=== PATIENT | male | born 1960 | race Caucasian/White ===

== ENCOUNTER → 2016-08-23 19:13 | Outpatient (CLI) | payer MEDICAID ==
[2015-06-18 12:29] VITALS: BMI 29.3
[~2016-08-23 19:13] MED LIST: ADVAIR 250/501 DISK INH; BAYER CHEWABLE81 MG PO; BENICAR20 MG PO; BRILINTA90 MG PO; FLUTICASONE PRO16 GM NASAL; IPRAT-ALBUT 0.5-3 ML UPD; MOBIC7.5 MG PO; MUCINEX600 MG PO; PREDNISONE; PRILOSEC20 MG PO; SINGUL; SPIRIVA18 MCG INH; ULTRAM50 MG PO; VENTOLIN HFA18 GM INH; XANAX1 MG PO
== END | disposition home or self-care (01) ==
LOC: D.SLEEP 19:13
DX: G47.33 Obstructive sleep apnea (adult) (pediatric) (principal)

== ENCOUNTER → 2016-09-14 19:36 | Outpatient (CLI) | payer MEDICAID ==
[2015-06-18 12:29] VITALS: BMI 29.3
== END | disposition home or self-care (01) ==
LOC: D.SLEEP 19:36
DX: G47.33 Obstructive sleep apnea (adult) (pediatric) (principal)

== ENCOUNTER 2018-10-20 11:58 | Inpatient (IN) | payer MEDICARE ==
[~2018-10-20] VITALS: Ht 182.9 cm; Wt 96.9 kg
--- NOTE | ~2018-10-20 | HEMODYNAMI ---
PATIENT:BESSY KOTHARI MEDICAL RECORD: [id number] : 60 LOCATION:DTOI ADMISSION DATE: 10/20/18 Generatedon:10/20/201815:04 Patient name: BESSY KOTHARI Patient #: [id number] SSN: : 1960 Date of study: 10/20/2018 Page: Of Hemodynamic Procedure Report Patient Data Patient Demographics Procedure consent was obtained First Name: BESSY Gender: Male Last Name: TAYE : 1960 [facility] Initial: TRACIE Age: 58 year(s) Patient #: [id number] Race: Additional ID: [id number] Contact details [address]: [address] [place] [address] State: [place] City: [place] Zip code: [address] Past Medical History History of disease Date Diagnosis Comments CAD Allergies Allergen Reaction Date Comments Reported Other allergy 09/27/2014 advil NSAIDs 10/20/2018 Admission Admission Data Admission Date: 10/20/2018 Admission Time: 11:58 Height (in.): 72 BSA: 2.13 (m2) Height (cm.): 182.88 BMI: 27.21 (kg/m2) Weight (lbs.): 200.62 Weight (kg.): 91 Lab Results Lab Result Date: 10/20/2018 Lab Result Time: 0:00 Biochemistry Name Units Result Min Max BUN mg/dl 11 --(-*--)-- 7 18 Creatinine mg/dl 1 --(--*-)-- 0.6 1.3 CBC Name Units Result Min Max Hematocrit % 50.4 --(--*-)-- 42 54 Hemoglobin g/dl 18.3 --(----)*- 13.5 17.5 Procedure Procedure Types Cath Procedure Diagnostic Procedure [facility] w/Coronaries Sedation Charges Moderate Sedation up to 15 minutes Procedure Description Procedure Date Procedure Date: 10/20/2018 Procedure Start Time: 14:45 Procedure End Time: 14:59 Procedure Staff Name Function Quintin Bagley MD Performing Physician Katya Gonzalez RT Monitor Nat Hawthorne RN Nurse Hue Carmona RT Scrub Procedure Data Cath Procedure Fluoroscopy Diagnostic fluoroscopy Total fluoroscopy Time: 1.3 time: 1.3 min min Diagnostic fluoroscopy Total fluoroscopy dose: 410 dose: 410 mGy mGy Contrast Material Contrast Material Type Amount (ml) Isovue 300 61 Entry Location Entry Primary Successful Side Size Upsize Upsize Entry Closure Succes sful Closure Location (Fr) 1 (Fr) 2 (Fr) Remarks Device Remarks Femoral Right 5 Fr Exoseal artery Estimated blood loss: 5 ml Diagnostic catheters Device Type Used For End Catheter Placement MULTIPACK JL 4.0 5Fr Procedure catheter MULTIPACK 3DRC 5Fr Procedure catheter MULTIPACK Pigtail 5 Fr Procedure catheter Procedure Complications No complications Procedure Medications Medication Administration Route Dosage 0.9% NaCl I.V. 100 ml/hr Oxygen etCO2 Nasal cannula 2 l/min Lidocaine 2% added to field 20 Heparin Flush Bag added to field 2 bags (1000units/500ml NS) Versed I.V. 2 mg Fentanyl I.V. 50 mcg Versed I.V. 1 mg Fentanyl I.V. 25 mcg Heparin Drip I.V. drip 1000 units/hr (84555fuvzy/250 D5W) Hemodynamics Rest BSA: 2.13 (m2) HGB: 18.3 (g/dl) O2 Consumption: Estimated: 236.14 (ml/min) O2 Co nsumption indexed: Estimated:110.86 (ml/min/m) Heart Rate: 51 (bpm) Pressure Samples Time Site Value (mmHg) Purpose Heart Use Rate(bpm) 14:50 LV 130/10,17 Snapshot 52 14:50 LV 134/10,15 Snapshot 53 Gradients Valve Time Site Site Mean SEP/DFP Peak To Heart Use 1 2 (mmHg) (sec/min) Peak Rate (mmHg) (bpm) Aortic 14:50 LV AO 52 Snapshots Pre Cath Intra NCS Post Cath Vital Signs Time Heart Resp SPO2 etCO2 NIBP (mmHg) Rhythm Pain Sedation Rate (ipm) (%) (mmHg) Status Level (bpm) 14:34:47 54 14 98 30.7 155/86(128) SB 0 (11) 10(A) , No pain 14:39:11 53 16 97 33.7 139/81(105) SB 0 (11) 10(A) , No pain 14:43:27 56 16 98 38.2 132/81(98) SB 0 (11) 10(A) , No pain 14:47:43 52 13 98 36.7 144/72(114) SB 0 (11) 9(A) , No pain 14:52:02 54 13 98 37.4 128/82(106) SB 0 (11) 9(A) , No pain 14:56:14 53 13 98 29.2 142/84(115) SB 0 (11) 10(A) , No pain Medications Time Medication Route Dose Verified Delivered Reason No luis fernando Effectiveness by by 14:37:18 0.9% NaCl I.V. 100 Quintin Nat used for ml/hr St Sanya Hawthorne procedure MD THAYER 14:37:26 Oxygen etCO2 2 l/min Quintin Nat used for Nasal Kevyn Christoph procedure cannula MD THAYER 14:37:31 Lidocaine 2% added 20ml Quintin Ribeiro for local to vial [facility] anesthetic field MD CISNEROS 14:37:36 Heparin Flush added 2 bags Quintin Quintin used for Bag to [facility] procedure (1000units/500ml field MD CISNEROS NS) 14:40:13 Versed I.V. 2 mg Quintin Nat for sedation St Sanya Hawthorne MD, RN 14:40:23 Fentanyl I.V. 50 mcg Quintin Nat for sedation St Sanya Hawthorne MD, RN 14:44:38 Versed I.V. 1 mg Quintin Nat for sedation St Sanya Hawthorne MD, RN 14:44:43 Fentanyl I.V. 25 mcg Quintin Ballyla for sedation St Sanya Hawthorne MD, RN 15:01:07 Heparin Drip I.V. 1000 Quintin Ballyla for (70784jofax/250 drip units/hr Kevyn Christoph anticoagulation D5W) MD THAYERgeneral assembler Log Time Note 14:22:11 Nat Hawthorne RN sent for patient. Start room use. 14:22:12 Time tracking: Regular hours (M-F 7:00 - 5:00) 14:22:16 Plan of Care:Hemodynamics will remain stable., Cardiac rhythm will remain stable., Comfort level will be maintained., Respiratory function will remain adequate., Patient/ family verbilizes understanding of procedure., Procedure tolerated without complication., Recovers from procedure without complications.. 14:25:33 Signed procedure consent form obtained from patient. 14:25:38 Patient received from Pre/Post Procedure Room to CCL 1 Alert and oriented. Tansferred to table in Supine position. 14:25:39 Warm blankets applied, and carla hugger turned on for patient comfort. 14:25:40 Correct patient and procedure confirmed by team. 14:25:40 ECG and BP/O2 sat monitors applied to patient. 14:25:49 H&P Date Dictated: 10/17/2018 Within 30 days and on chart., H&P Addendum completed by physician on day of procedure. (MUST COMPLETE FOR ALL OUTPATIENTS). 14:25:59 Patient allergic to NSAIDs 14:33:38 Vital chart was started 14:33:40 Baseline sample Acquired. 14:33:43 Rhythm: sinus bradycardia 14:33:43 Full Disclosure recording started 14:33:44 Pre-procedure instructions explained to patient. 14:33:45 Pre-op teaching completed and patient verbalized understanding. 14:33:46 Family in patients room. 14:33:47 Patient NPO since Midnight. 14:33:52 Is patient on blood thinner?Yes 14:34:06 PT STATES ON PLAVIX, LAST DOES WEDNESDAY 14:34:08 Patient diabetic? No. 14:34:14 Previous problem with sedation/anesthesia? No ? 14:34:17 Snore? Yes 14:34:18 Sleep apnea? No 14:34:19 Deviated septum? No 14:34:20 Opens mouth fully? Yes 14:34:21 Sticks out tongue? Yes 14:34:23 Airway obstruction? Yes COPD 14:34:35 Dentures? No MISSING TEETH 14:34:38 Pre procedure: right dorsailis pedis pulse 1+ Palpable, but thready & weak; easily obliterated 14:34:41 Patient pain scale 0/10 ?. 14:34:43 IV patent on arrival in left hand with 0.9% NaCl at [facility]. 14:35:05 Lab results completed and on chart. 14:37:18 0.9% NaCl 100 ml/hr I.V. was administered by Nat Hawthorne RN; used for procedure; 14:37:26 Oxygen 2 l/min etCO2 Nasal cannula was administered by Nat Hawthorne RN; used for procedure; 14:37:31 Lidocaine 2% 20ml vial added to field was administered by Quintin Bagley MD; for local anesthetic; 14:37:36 Heparin Flush Bag (1000units/500ml NS) 2 bags added to field was administered by Quintin Bagley MD; used for procedure; 14:38: Lab Result : BUN 11 mg/dl 14:: Lab Result : Creatinine 1 mg/dl 14:38: Lab Result : Hemoglobin 18.3 g/dl 14:38: Lab Result : Hematocrit 50.4 % 14:38:30 Right groin area was prepped with chlora-prep and draped in sterile fashion 14:38:31 Alarms reviewed by R. N. 14:38:32 Sharps counted by scrub and verified by R.N. 14:38:35 Use device set Femoral Dx 14:38:35 ACIST Syringe (18457) opened to sterile field. 14:38:36 Bag Decanter (2002S) opened to sterile field. 14:38:37 ACIST Hand Control (93298) opened to sterile field. 14:38:37 ACIST Manifold (57133) opened to sterile field. 14:38:38 Tegaderm 4 x 4 (1626W) opened to sterile field. 14:38:39 Medline Cath Pack ([id number]) opened to sterile field. 14:38:40 DIAGNOSTIC WIRE .035 260cm J wire (953102) opened to sterile field. 14:38:41 DIAGNOSTIC Multipack 5Fr catheter set (WH4258) opened to sterile field. 14:38:42 SHEATH 5FR [place] (YCJ504) opened to sterile field. 14:39:36 --------ALL STOP TIME OUT------ 14:39:37 Final Timeout: patient, procedure, and site verified with staff and physician. All members of the team are in agreement. 14:39:38 Right groin site verified by team. 14:39:40 Maximum allowable Isovue 300 dose 300ml. Physician notified. (300ml for normal creatinines. For patients with creatinine of 1.7 or higher multiply weight(kg) x 5 divided by creatinine.) 14:39:43 Fire Safety Assessment: A--An alcohol-based skin anteseptic being used preoperatively., C--Open oxygen or nitrous oxide is being used., D--An ESU, laser, or fiber-optic light is being used. 14:39:46 Physical assessment completed. ASA score P 2 - A patient with mild systemic disease as per Quintin Bagley MD. 14:39:50 Sedation plan: IV Moderate Sedation Medication:Versed, Fentanyl 14:40:13 Versed 2 mg I.V. was administered by Nat Hawthorne RN; for sedation; 14:40:23 Fentanyl 50 mcg I.V. was administered by Nat Hawthorne RN; for sedation; 14:40:35 Patient Weight : 200.62 lbs 14:40:41 Patient Height : 72 inches 14:44:38 Versed 1 mg I.V. was administered by Nat Hawthorne RN; for sedation; 14:44:42 Procedure started. 14:44:43 Fentanyl 25 mcg I.V. was administered by Nat Hawthorne RN; for sedation; 14:44:58 Zero performed for pressure channel P1 14:45:09 Local anesthetic to right femoral artery with Lidocaine 2% by Quintin Bagley MD.INITIAL ACCESS ONLY 14:45:30 A 5 Fr sheath was inserted into the Right Femoral artery 14:45:59 A MULTIPACK JL 4.0 5Fr catheter was advanced over the wire and used for Procedure. 14:47:08 LCA angiography performed. 14:47:34 Catheter removed. 14:47:39 A MULTIPACK 3DRC 5Fr catheter was advanced over the wire and used for Procedure. 14:48:50 RCA angiography performed. 14:48:52 Catheter removed. 14:49:20 A MULTIPACK Pigtail 5 Fr catheter was advanced over the wire and used for Procedure. 14:50:32 LV gram done using CAMERON 14:50:46 Injector settings: Ml/sec: 10, Volume: 20, 14:50:47 LV hemodynamics recorded. 14:50:55 EF : 50 % 14:50:57 Catheter removed. 14:53:52 EXOSEAL 5Fr (EX500) opened to sterile field. 14:57:13 Sheath removed intact; hemostasis achieved with Exoseal to the Right Femoral artery. 14:57:15 Procedure ended.(Physican Out) 14:58:04 Fluoroscopy time 01.30 minutes. 14:58:08 Flurop Dose total: 410 14:58:08 Fluoroscopy dose: 410 mGy 14:58:11 Contrast amount:Isovue 300 61ml. 14:58:13 Sharps counted by scrub and verified by R.N. 14:58:17 Post-op/insertion site Right Femoral artery dressed using a 4 x 4 and Tegaderm. 14:58:21 Post-procedure physical assessment completed. ASA score P 3 - A patient with severe systemic disease as per Quintin Bagley MD. 14:58:25 Post procedure rhythm: sinus bradycardia 14:58:28 Estimated blood loss: 5 ml 14:58:29 Post procedure instruction explained to patient.Patient verbalizes understanding. 14:58:29 Patient needs reinforcement of post procedure teaching. 14:58:44 Procedure type changed to Cath procedure, Diagnostic procedure, LHC, LHC w/Coronaries, Sedation Charges, Moderate Sedation up to 15 minutes 14:58:58 Procedure and supply charges have been captured, reviewed, submitted and are correct. 14:59:00 Procedure Complication : No complications 14:59:02 Vital chart was stopped 14:59:03 See physician's report for complete and final results. 14:59:11 Report given to PCU. 14:59:14 Patient transfered to PCU with Bed. 14:59:16 Procedure ended. 14:59:16 Full Disclosure recording stopped 14:59:23 End room use (Document Last) 15:01:07 Heparin Drip (86839gkqca/250 D5W) 1000 units/hr I.V. drip was administered by Nat Hawthoren RN; for anticoagulation; Device Usage Item Name Manufacture Quantity Catalog Hospital Part Current Minimal L ot# / Number Charge Number Stock Stock Serial# Code ACIST Acist 1 10862 607987 433034 914829 20 Syringe Medical (67500) Systems Inc Bag Microtek 1 879870 63238 943020 5 Decanter Medical Inc. () ACIST Hand Acist 1 68048 627422 275048 401301 5 Control Medical (94712) Systems Inc ACIST Acist 1 85810 593215 693536 698196 5 Manifold Medical (61461) Systems Inc Tegaderm 4 3M 1 1626W 763355 735131 976830 5 x 4 (1626W) Medline Medline 1 [id number] 332938 58444 547187 5 Cath Pack ([id number]) DIAGNOSTIC St [place] 1 451120 688060 349843 218720 30 WIRE .035 260cm J wire (549974) DIAGNOSTIC Cardinal 1 QW9547 845730 87377 574167 30 Multipack Health 5Fr catheter set (RG8323) SHEATH 5FR Terumo 1 NCF382 630717 432507 858412 5 Springfield (AWR642) MULTIPACK Cardinal 1 103321 5 JL 4.0 5Fr Health catheter MULTIPACK Cardinal 1 406441 5 3DRC 5Fr Health catheter MULTIPACK Cardinal 1 526826 5 Pigtail 5 Health Fr catheter EXOSEAL 5Fr Cardinal 1 EX500 217407 403852 242790 10 (EX500) Health Signature Audit Gilbert Stage Time Signature Unsigned Intra-Procedure 10/20/2018 Katya Gonzalez 3:04:21 PM RT(R) Signatures Monitor : Katya Gonzalez Signature : RT Date : Time : [address] [place] [address]
[2018-10-20] MEDS ORDERED: METOPROLOL TART25 MG PO (12:15)
[2018-10-20] MEDS ORDERED: SINGULAIR10 MG PO (12:15)
[2018-10-20] MEDS ORDERED: MIRAPEX0.125 MG PO (12:16)
[2018-10-20] MEDS ORDERED: LIPITOR80 MG PO (12:16)
[2018-10-20] MEDS ORDERED: LISINOPRIL40 MG PO (12:16)
[2018-10-20 12:26] VITALS: BP 181/89; BMI 27.2
[2018-10-20 12:32] LABS: BASOPHILS 0.2 % (0-2); EOSINOPHILS 2.9 % (0-7); HEMATOCRIT 50.4 % (42.0-54.0); HEMOGLOBIN 18.3 g/dL (13.5-17.5); IMMATURE GRANULOCYTES 0.2 % (0-5); LYMPHOCYTES 32.5 % (15-50); MCH 32.1 pg (26.0-34.0); MCHC 36.3 g/dL (31.0-37.0); MCV 88.4 fL (80.0-100.0); NEUTROPHILS 56.2 % (40-80); WBC 9.3 10x3/uL (4.8-10.8)
[2018-10-20 12:37] LABS: PLATELET COUNT 175 10x3/uL (130-400)
[2018-10-20 12:39] LABS: CALC OSMOLALITY 279 mosm/kg (275-300); CALCIUM 8.5 mg/dL (8.5-10.1); CHLORIDE - SERUM 105 mmol/L (98-107); GLUCOSE 101 mg/dL (74-106); POTASSIUM - SERUM 3.7 mmol/L (3.5-5.1); SODIUM 141 mmol/L (136-145); UREA NITROGEN 11 mg/dL (7-18); eGFR NON AFRICAN AMERICAN 81 mL/min (90-120)
[2018-10-20] MEDS ORDERED: PLAVIX75 MG PO (15:27)
[2018-10-20 15:49] LABS: PLT FUNCT.(P2Y12) PLAVIX 158 PRU (194-418)
--- NOTE | 2018-10-20 15:49 | NUR ---
PT ARRIVED FROM CHILD WELFARE COUNSELOR, ALERT AND ORIENTED X3, SPOUSE IS AT BEDSIDE. WILL CONTINUE TO MONITOR AND FOLLOW PLAN OF CARE.
--- NOTE | 2018-10-20 15:52 | NUR ---
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 FAMILY IS AT BEDSIDE AT THIS TIME. WILL CONTINUE TO MONITOR AND FOLLOW PLAN OF CARE.
--- NOTE | 2018-10-20 15:59 | NUR ---
TRANSFER FROM POLICE CADET BY BED. RIGHT GROIN STABLE WITHOUT BLEEDING OR HEMATOMA NOTED. FAMILY AT BS. CALL LIGHT IN REACH. WILL CONT. PLAN OF CARE.
[2018-10-20 16:00] VITALS: BP 147/87; BP 167/90; BMI 27.2
[2018-10-20 16:28] LABS: BASOPHILS 0.2 % (0-2); EOSINOPHILS 2.8 % (0-7); HEMOGLOBIN 16.3 g/dL (13.5-17.5); IMMATURE GRANULOCYTES 0.2 % (0-5); LYMPHOCYTES 36.3 % (15-50); MCH 31.7 pg (26.0-34.0); MCHC 35.4 g/dL (31.0-37.0); MCV 89.5 fL (80.0-100.0); MEAN PLATELET VOLUME 11.3 fL (7.4-10.4); NEUTROPHILS 53.5 % (40-80); PLATELET COUNT 166 10x3/uL (130-400); RBC 5.14 10x6/uL (4.20-6.10)
[2018-10-20 16:43] LABS: INR 1.06 (0.85-1.17); PROTIME 13.3 SECONDS (11.6-15.0)
[2018-10-20 17:44] LABS: ALBUMIN 3.4 g/dL (3.4-5.0); ALKALINE PHOSPHATASE 89 U/L (46-116); ALT (SGPT) 33 U/L (10-68); BILIRUBIN - TOTAL 1.15 mg/dL (0.2-1.3); CALC OSMOLALITY 278 mosm/kg (275-300); CALCIUM 7.8 mg/dL (8.5-10.1); CARBON DIOXIDE 26.5 mmol/L (21.0-32.0); CHLORIDE - SERUM 107 mmol/L (98-107); CHOLESTEROL, TOTAL 97 mg/dL (0-200); CREATININE - SERUM 0.8 mg/dL (0.6-1.3); GLUCOSE 76 mg/dL (74-106); PHOSPHOROUS 2.6 mg/dL (2.5-4.9); POTASSIUM - SERUM 3.8 mmol/L (3.5-5.1); PROTEIN - SERUM 6.4 g/dL (6.4-8.2); SODIUM 141 mmol/L (136-145); T4 THYROXIN - FREE 1.15 ng/dL (0.76-1.46); THYROID STIMULATING HORMONE 0.79 uIU/mL (0.36-3.74); UREA NITROGEN 10 mg/dL (7-18); URIC ACID 3.7 mg/dL (2.6-7.2); eGFR NON AFRICAN AMERICAN > 90 mL/min (90-120)
--- NOTE | 2018-10-20 19:45 | NUR ---
RESUMING PATIENT CARE. PATIENT IS ALERT AND ORIENTED. RESTING COMFORTABLY IN BED. RESPIRATIONS ARE EVEN AND UNLABORED. NO S/S OF DISTRESS. NO C/O PAIN. CALL LIGHT WITHIN REACH. WILL CPOC.
[2018-10-20 20:00] VITALS: BP 156/97
[2018-10-21] VITALS (27 sets, daily range): BP systolic 91–146; BP diastolic 51–77
[2018-10-21 05:14] LABS: INR 1.05 (0.85-1.17); PROTIME 13.3 SECONDS (11.6-15.0)
[2018-10-21 05:16] LABS: BASOPHILS 0.5 % (0-2); EOSINOPHILS 3.2 % (0-7); HEMATOCRIT 46.6 % (42.0-54.0); HEMOGLOBIN 16.4 g/dL (13.5-17.5); IMMATURE GRANULOCYTES 0.1 % (0-5); LYMPHOCYTES 33.6 % (15-50); MCH 31.4 pg (26.0-34.0); MCHC 35.2 g/dL (31.0-37.0); MCV 89.3 fL (80.0-100.0); MEAN PLATELET VOLUME 11.6 fL (7.4-10.4); MONOCYTES 7.5 % (2-11); NEUTROPHILS 55.1 % (40-80); PLATELET COUNT 151 10x3/uL (130-400); RBC 5.22 10x6/uL (4.20-6.10); WBC 10.2 10x3/uL (4.8-10.8)
[2018-10-21 05:18] LABS: APTT 56.2 SECONDS (22.8-39.4)
[2018-10-21 05:28] LABS: ALBUMIN 3.4 g/dL (3.4-5.0); ALKALINE PHOSPHATASE 92 U/L (46-116); ALT (SGPT) 29 U/L (10-68); BILIRUBIN - TOTAL 1.43 mg/dL (0.2-1.3); CALC OSMOLALITY 279 mosm/kg (275-300); CALCIUM 7.8 mg/dL (8.5-10.1); CARBON DIOXIDE 25.5 mmol/L (21.0-32.0); CHLORIDE - SERUM 108 mmol/L (98-107); CREATININE - SERUM 0.9 mg/dL (0.6-1.3); GLUCOSE 98 mg/dL (74-106); POTASSIUM - SERUM 3.8 mmol/L (3.5-5.1); PROTEIN - SERUM 6.6 g/dL (6.4-8.2); SODIUM 141 mmol/L (136-145); UREA NITROGEN 10 mg/dL (7-18); eGFR NON AFRICAN AMERICAN > 90 mL/min (90-120)
--- NOTE | 2018-10-21 13:30 | NUR ---
PT RECEIVED TO ROOM VIA BED FROM O.R. PT SEDATED AND VENTILATED. PLACED ON BEDSIDE MONITORING. CURRENTLY INFUSING PLASMALYTE AT 100ML/HR. NO OTHER DRIPS. PT HAS RIGHT RADIAL ART LINE. RIGHT JUGULAR CENTRAL LINE. MIDSTERNAL INCISION COVERED, DRESSING C,D,I. SUBSTERNAL DRESSING OVER CHEST TUBE X2, LEFT WILLIE DRAIN (COMPRESSED), TPM SITES X2. TPM TURNED ON AND SET TO AAI 80. HANSON CATHETER. RIGHT LEG HARVESTS. DRESSING INTACT AND CLEAN. LEFT LEG WITH RIHCARD AND SCD. 8.0 ETT 24CM AT THE LIP. 100%. PALPABLE PULSES BILATERAL, PT ABLE TO MOVE ALL EXTREMITIES.
--- NOTE | 2018-10-21 15:01 | NUR ---
DR WOOD BY TO SEE PATIENT. TURNED OFF TPM. PT HR UPPER 50'S. SAYS IS OK FOR PATIENT TO STAY IN 50'S, THAT IS WHERE HE WAS PRE-OP.
--- NOTE | 2018-10-21 16:40 | NUR ---
ABG RESULTS RELAYED TO DR WOOD. OK TO EXTUBATE, BUT WANTS TPM TURNED BACK ON TO RATE OF 70 AND ANOTHER GAS IN 2 HOURS.
--- NOTE | 2018-10-21 16:46 | NUR ---
PT EXTUBATED. TOLERATED WELL. PLACED ON 4L NC.
--- NOTE | 2018-10-21 19:00 | NUR ---
REPORT RECIEVED, SHIFT ASSESSMENT COMPLETE, PLEASE SEE FLOW SHEETS FOR DETAILS. CHECKED CHEST TUBES, PATENT. TPM CHECKED, ON, PROTECTIVE COVER IN PLACE. HEMODYNAMICALLY STABLE, WILL CONTINUE PLAN OF CARE.
--- NOTE | 2018-10-21 20:00 | NUR ---
PULLED 400 OF I.S., ENCOURAGED COUGH, WEAK.
--- NOTE | 2018-10-21 21:00 | NUR ---
PULLED 500 ON I.S., WEAK COUGH OBSERVED. HEMODYNAMICALLY STABLE. BED LOW AND LOCKED, CALL LIGHT IN REACH. WILL CONTINUE PLAN OF CARE.
--- NOTE | 2018-10-21 21:45 | NUR ---
DANGLED AT SIDE OF BED. TOLERATED WELL. NO DUMPING FROM CHEST TUBES SEEN. LAYING BACK IN BED, POSITIONED FOR COMFORT. HEMODYNAMICALLY STABLE. CONTINUING PLAN OF CARE.
[2018-10-21 22:49] LABS: APPEARANCE CLEAR (CLEAR); BILIRUBIN NEGATIVE (NEGATIVE); COLOR YELLOW (YELLOW); GLUCOSE NEGATIVE (NEGATIVE); KETONE SMALL mg/dL (NEGATIVE); NITRITE NEGATIVE (NEGATIVE); PROTEIN TRACE mg/dL (NEGATIVE); UROBILINOGEN NORMAL (NORMAL)
[2018-10-21 22:51] LABS: BACTERIA MODERATE /hpf (NONE SEEN); EPITHELIAL CELLS 0-5 /hpf (0-5); RED CELLS - URINE 0-5 /hpf (0-5)
[2018-10-21 22:52] LABS: HYALINE CAST 0-5 /lpf (NONE SEEN); MUCUS <1+ /lpf (NONE SEEN)
--- NOTE | 2018-10-21 22:58 | NUR ---
REASSESSMENT COMPLETE, PLEASE SEE FLOW SHEETS FOR DETAILS. NO ACUTE CHANGES TO NOTE. PULLED 550 ON I.S., WEAK COUGH. HEMODYNAMICALLY STABLE. BED LOW AND LOCKED, CALL LIGHT IN REACH. WILL CONTINUE PLAN OF CARE.
[2018-10-22] VITALS (47 sets, daily range): BP systolic 88–124; BP diastolic 46–73
--- NOTE | 2018-10-22 01:00 | NUR ---
RESTING, HEMODYNAMICALLY STABLE. MONITORING ALL TUBES/LINES. BED LOW AND LOCKED, CALL LIGHT IN REACH. WILL CONTINUE PLAN OF CARE.
--- NOTE | 2018-10-22 03:35 | NUR ---
REASSESSMENT COMPLETE, PLEASE SEE FLOW SHEETS FOR DETAILS. TITRATING DWIGHT TO EFFECT. WILL CONTINUE PLAN OF CARE.
--- NOTE | 2018-10-22 03:35 | NUR ---
0245 GAVE FULL BED BATH, DANGLED TO SIDE OF BED. ONCE BACK TO BED AND POSITINED FOR COMFORT, BP DROPPED, DWIGHT WAS INITIATED AND TITRATED TO EFFECT. TOTAL TIME IN ROOM 40 MINUTES. HANSON CARE PROVIDED. RICHARD'S AND SCD'S ON. RIGHT LEG DRESSING REMOVED, SOME BRUISING SEEN AROUND INCISION SITES (2), WOUND EDGES WELL APPROXIMATED. FEET AND ARMS ELEVATED ON PILLOWS, HEELS BRIDGED. BED LOW AND LOCKED, CALL LIGHT IN REACH. WILL CONTINUE PLAN OF CARE.
--- NOTE | 2018-10-22 05:00 | NUR ---
TITRATING DWIGHT TO EFFECT. PULLED 500 ON I.S.. WILL CONTINUE PLAN OF CARE.
[2018-10-22 05:20] LABS: BASOPHILS 0.1 % (0-2); EOSINOPHILS 0 % (0-7); HEMATOCRIT 37.6 % (42.0-54.0); IMMATURE GRANULOCYTES 0.3 % (0-5); LYMPHOCYTES 7.4 % (15-50); MCH 31.1 pg (26.0-34.0); MCHC 34.3 g/dL (31.0-37.0); MCV 90.6 fL (80.0-100.0); MEAN PLATELET VOLUME 10.8 fL (7.4-10.4); MONOCYTES 10.7 % (2-11); NEUTROPHILS 81.5 % (40-80); RDW 13.4 % (11.5-14.5)
[2018-10-22 05:24] LABS: HEMOGLOBIN 12.9 g/dL (13.5-17.5); PLATELET COUNT 223 10x3/uL (130-400); RBC 4.15 10x6/uL (4.20-6.10); WBC 18.2 10x3/uL (4.8-10.8)
[2018-10-22 05:47] LABS: ALBUMIN 2.8 g/dL (3.4-5.0); ANION GAP 14.1 mmol/L (8-16); BILIRUBIN - TOTAL 1.68 mg/dL (0.2-1.3); CARBON DIOXIDE 25.7 mmol/L (21.0-32.0); POTASSIUM - SERUM 3.8 mmol/L (3.5-5.1); PROTEIN - SERUM 5.4 g/dL (6.4-8.2)
[2018-10-22 05:49] LABS: CREATININE - SERUM 1.3 mg/dL (0.6-1.3)
[2018-10-22 05:50] LABS: CALCIUM 6.5 mg/dL (8.5-10.1)
--- NOTE | 2018-10-22 06:59 | NUR ---
ASSISTED UP TO CHAIR. TOLERATED WELL. TITRATING DWIGHT TO EFFECT.
--- NOTE | 2018-10-22 07:39 | NUR ---
report received. shift assessment complete. pt is up in chair at bedside. clear liquid breakfast tray provided. pt denies getting any rest overnight when asked. has been uncomfortable. cheast tubes remain to suction. on 4l nc. hollins catheter. rij infusing plasmalyte and pako.
--- NOTE | 2018-10-22 09:58 | OP ---
PATIENT NAME: BESSY KOTHARI MEDICAL RECORD: [id number] :60 LOCATION:[facility].CV01 ADMISSION DATE:10/20/18 SURGEON: JOSE IRBY MD DATE OF OPERATION: 10/20/2018 PROCEDURE: Left heart catheterization, selective coronary angiography, right femoral artery approach. CATHETERS: A 5-Lao sheath, 5/4 left and right Emanuel, 5/4 pig. The procedure was well tolerated. The patient returned to the garcia. Sheath removed. ExoSeal device in place. Started on heparin drip. FINDINGS: Left ventriculography in 30-degree CAMERON view shows inferobasilar hypokinesis. Overall, function preserved at 30%. CORONARY ANATOMY: LEFT MAIN: Left main tapers a true 80% stenosis involved. LAD: LAD itself has 2 sequential stenosis, 1 distally about 80% more proximal 80%. CIRCUMFLEX: Large OM and a left dominant system. OM itself has about 80% stenosis. RIGHT CORONARY ARTERY: Rudimentary and totally occluded. IMPRESSION: Critical left main disease, had Plavix Wednesday. We will check P2Y12 level. Start on heparin drip. Surgery when platelet activity allows. TRANSINT:[id number] Voice Confirmation ID: [id number] DOCUMENT ID: [id number] JOSE IRBY MD at 0958 CC: [id number] DICTATION DATE: 10/20/18 1502 CRANE OPERATOR CAB: 10/20/18 1616 ADM IN [address] [place] [address]
--- NOTE | 2018-10-22 10:00 | NUR ---
PT C/O BACKSIDE HURTING. ASSISTED IN STANDING, ADDITIONAL PILLOW PLACED IN SEAT OF CHAIR FOR COMFORT.
--- NOTE | 2018-10-22 11:22 | OP ---
PATIENT NAME: BESSY KOTHARI MEDICAL RECORD: [id number] :60 LOCATION:[facility] D.CV01 ADMISSION DATE:10/20/18 SURGEON: TALON WOOD MD DATE OF OPERATION: 10/21/2018 SURGEON: Talon Wood MD DISPOSAL PLANT OPERATOR: Jordan Quintero. PROCEDURES PERFORMED: 1. Coronary artery bypass graft times 4 (left internal mammary artery, sequential graft to mid LAD and distal LAD, reverse saphenous vein graft from aorta to proximal ramus intermedius branch and aorta to obtuse marginal), two arterial and two venous grafts. 2. Endoscopic saphenous vein harvest. PREOPERATIVE DIAGNOSES: Coronary artery disease with in-stent restenosis and severe left main coronary artery stenosis, moderate inferobasal cardiomyopathy. POSTOPERATIVE DIAGNOSES: Coronary artery disease with in-stent restenosis and severe left main coronary artery stenosis, moderate inferobasal cardiomyopathy and moderate mitral regurgitation. ANESTHESIA: General endotracheal anesthesia. ESTIMATED BLOOD LOSS: Total cardiopulmonary bypass with Cell Saver retransfusion, 2 platelets. COMPLICATIONS: None. SPECIMENS: None. CONDITION: Stable. DISPOSITION: CV ICU. OPERATIVE FINDINGS: 1. Good quality greater saphenous vein from the right lower extremity. 2. Transesophageal echocardiography with good contractility, but unexpected finding of 1-2+ mitral regurgitation, eccentric jet extending up the wall with a normal-appearing valve coaptation and movement and no significant left ventricular cavity dilatation after separation from cardiopulmonary bypass, these findings were unchanged. 3. Good quality left internal mammary artery. The LAD had severe disease in the mid distal vessel beyond the more distal diagonal; therefore, a [id number] anastomosis to the left internal mammary artery in the mid vessel, which was 2 mm vessel, but a 1.5 mm probe would not pass distally and therefore the tip of the internal mammary anastomosed more distally where this was a 1.5 mm vessel and from that point, a 1.5 mm probe passed distally to the apex. 4. Tandem ramus intermedius branches of the more proximal was larger and a 1.5 mm vessel. 5. Obtuse marginal 2.0 mm. OPERATIVE INDICATION: Coronary artery disease and left main coronary artery stenosis in a patient on Plavix. OPERATIVE REPORT [id number] BESSY KOTHARI OPERATIVE PROCEDURE IN DETAIL: The patient was brought to the operating suite. General anesthesia obtained. The patient was prepped and draped. Greater saphenous vein harvest of right lower extremity utilizing endoscopic technique. Side branches were divided with electrocautery. The vessel was ligated proximally and distally and removed. Side branches were tied, later small thin sites were oversewn. Leg was irrigated and closed in 2 layers and later wrapped with an elastic wrap. Median sternotomy incision was made. Subcutaneous tissue was divided by electrocautery. The sternum was divided with a saw. Left hemisternum was elevated. The left pleural cavity was entered. Left internal mammary vein was taken as a pedicle graft. Sternal retractor was placed. Pericardium was opened. Heparin was given. Aorta was cannulated. Dual stage venous cannula was inserted. The internal mammary was clipped distally and made ready for anastomosis. The patient was placed on cardiopulmonary bypass after activated clotting time was appropriately elevated. Sites for distal anastomoses were selected. Antegrade cardioplegic cannula was inserted. The patient's temperature was allowed to drift downward to 34 degrees. Crossclamp was placed. Cardioplegia was given antegrade and this repeated at 20 minutes including an occluded vein graft. Distal anastomosis was performed in standard technique as noted above [id number] sequential of the left internal mammary artery to the mid LAD. Hemostasis was ensured. Proximal anastomosis with single cross-clamp technique. Aortic root de-aired. Proximal anastomosis tied down. Vein grafts de-aired and flow restored. Proximal and distal anastomotic sites inspected for bleeding. The patient fully rewarmed, weaned from cardiopulmonary bypass and was stable. The patient was moderately bradycardic. Atrial pacing wires were used for atrial only pacing initially. The thorough irrigation was undertaken. There was evidence of platelet dysfunction and platelets were given. The drains were placed in the mediastinum and left pleural cavity. Pericardial fat was loosely reapproximated. The internal mammary harvest site was inspected for bleeding. The left chest was evacuated and irrigated. Sternum was closed with wires. Fascia was closed. Subcutaneous tissue was closed. Skin was closed. Dermabond was placed. The needle and sponge counts reported as correct. The patient was taken to the ICU in stable condition. TRANSINT:[id number] Voice Confirmation ID: [id number] DOCUMENT ID: [id number] TALON WOOD MD at 1122 CC: JOSE IRBY MD [id number] DICTATION DATE: 10/21/18 1436 INTERIOR DECORATOR PAPERHANGING: 10/21/18 2312 ADM IN [facility] [address] [id number]
--- NOTE | 2018-10-22 11:42 | NUR ---
PT ASSISTED UP FROM CHAIR TO BED. RIGHT RADIAL ART LINE REMOVED, TIP INTACT. HANSON CATHETER REMOVED TIP INTACT.
--- NOTE | 2018-10-22 12:02 | NUR ---
CHEST TUBE X2 REMOVED BY DR WOOD.
--- NOTE | 2018-10-22 13:50 | NUR ---
EXWIFE AND DAUGHTER HAVE BEEN AT BEDSIDE FOR VISITATION. ALL QUESTIONS ANSWERED. PT RESTING, C/O PAIN UPPER ABD/LOWER CHEST. MEDICATION GIVEN FOR PAIN RELIEF. BIG LIGHTS TURNED OUT AND FAMILY LEAVING TO ALLOW FOR PT TO REST. CALL LIGHT IN REACH.
--- NOTE | 2018-10-22 15:00 | NUR ---
PT ASSISTED UP TO CHAIR.
--- NOTE | 2018-10-22 16:45 | NUR ---
DINNER TRAY PROVIDED TO PATIENT. FAMILY AT BEDSIDE FOR VISITATION. PT DENIES ANY ADDITIONAL NEEDS. CALL LIGHT IN REACH.
--- NOTE | 2018-10-22 19:00 | NUR ---
REPORT RECIEVED, SHIFT ASSESSMENT COMPLETE, PLEASE SEE FLOW SHEETS FOR DETAILS. HEMODYNAMICALLY STABLE. UP IN CHAIR, PULLED 750 ON I.S. COUGH AND DEEP BREATH ENCOURAGED AND WITNESSED. WILL CONTINUE PLAN OF CARE.
--- NOTE | 2018-10-22 19:45 | NUR ---
BACK TO BED, TOLERATED WELL. WILL CONTINUE PLAN OF CARE.
--- NOTE | 2018-10-22 21:00 | NUR ---
PULLED 550-600 ON I.S., GOOD COUGH EFFORT. HEMODYNAMICALLY STABLE. BED LOW AND LOCKED, CALL LIGHT IN REACH. WILL CONTINUE PLAN OF CARE.
--- NOTE | 2018-10-22 23:00 | NUR ---
REASSESSMENT COMPLETE, PLEASE SEE FLOW SHEETS FOR DETAILS. PULLED 550 ON I.S., GOOD COUGH, EXPECTORATED HUGHES SPUTUM. HEMODYNAMICALLY STABLE, BED LOW AND LOCKED, CALL LIGHT IN REACH. WILL CONTINUE PLAN OF CARE.
[2018-10-23] VITALS (24 sets, daily range): BP systolic 91–133; BP diastolic 55–73
--- NOTE | 2018-10-23 01:00 | NUR ---
RESTING, NO S&S OF DISTRESS. HEMODYNAMICALLY STABLE. WILL CONTINUE PLAN OF CARE.
--- NOTE | 2018-10-23 03:00 | NUR ---
REASSESSMENT COMPLETE, PLEASE SEE FLOW SHEET FOR DETAILS. NO ACUTE CHANGES TO NOTE. REPOSITIONED FOR COMFORT. FULLED 500 ON I.S., PRODUCTIVE COUGH WITNESSED. HEMODYNAMICALLY STABLE. BED LOW AND LOCKED, CALL LIGHT IN REACH. WILL CONTINUE PLAN OF CARE.
--- NOTE | 2018-10-23 05:23 | NUR ---
FULL BED BATH AND LINEN CHANGE PROVIDED. PT DID OWN FACIAL AND KHADIJAH CARE. UP TO CHAIR. TOLERATED WELL. HEMODYNAMICALLY STABLE. CHAIR LOCKED, CALL LIGHT IN REACH. WILL CONTINUE PLAN OF CARE.
[2018-10-23 05:32] LABS: HEMATOCRIT 38.9 % (42.0-54.0); HEMOGLOBIN 13.3 g/dL (13.5-17.5); MCH 31.1 pg (26.0-34.0); MCHC 34.2 g/dL (31.0-37.0); MCV 91.1 fL (80.0-100.0); MEAN PLATELET VOLUME 10.7 fL (7.4-10.4); PLATELET COUNT 195 10x3/uL (130-400); RBC 4.27 10x6/uL (4.20-6.10); RDW 13.7 % (11.5-14.5); WBC 23.4 10x3/uL (4.8-10.8)
[2018-10-23 05:59] LABS: ALBUMIN 2.9 g/dL (3.4-5.0); ANION GAP 14.2 mmol/L (8-16); BILIRUBIN - TOTAL 2.09 mg/dL (0.2-1.3); CARBON DIOXIDE 25.8 mmol/L (21.0-32.0); CREATININE - SERUM 1.3 mg/dL (0.6-1.3); PROTEIN - SERUM 6.2 g/dL (6.4-8.2)
[2018-10-23 06:09] LABS: LYMPHOCYTES 9 % (15-50); MONOCYTES 3 % (2-11); NEUTROPHILS 83 % (40-80)
[2018-10-23 06:10] LABS: ROULEAUX 1+
[2018-10-23 06:35] LABS: PLATELET ESTIMATE NORMAL
--- NOTE | 2018-10-23 09:13 | TEE ---
PATIENT:BESSY KOTHARI MEDICAL RECORD: [id number] LOCATION:[place] [address] AGE OF PATIENT: 58 ADMISSION DATE: 10/20/18 SEX: M REFERRING PHYSICIAN: INTERPRETING PHYSICIAN: JOSE IRBY MD TRANSESOPHAGEAL ECHOCARDIOGRAM Date: 10/21/18 EDMOND CHARGE Y INDICATIONS: CABG PREMEDICATIONS: PATIENT'S RESPONSE PROCEDURE DOPPLER MEASUREMENTS: LVIT LA PA RA LVOT RVOT Asc. Ao AV Gradient Peak AV Mean AV Area MV Gradient Peak MV Mean MV Area INTERPRETATION: LVd: 4.7 cm LVs: 2.7 cm Doppler: 2-D: COLOR FLOW DOPPLER NORMAL SALINE STUDY: MISCELLANOUS: DIAGNOSIS: PLAN: Plant Operations Engineer:3 Dr. Whittaker Disaster Recovery Manager: Jevon SZYMANSKI COMMENTS: DATE OF SERVICE: PROCEDURE: Intraoperative EDMOND. Preoperatively shows inferobasilar hypokinesis with LV function lower limits of normal at 50%. There is moderate MR. Postoperatively, showed some improvement in his inferior wall with EF of 55%, moderate MR. TRANSINT:[id number] Voice Confirmation ID: [id number] DOCUMENT ID: [id number] TRANSESOPHAGEAL ECHOCARDIOGRAM REPORT [id number] BESSY KOTHARI at 0913 CC: [id number] DICTATION DATE: 10/22/18 1008 MACHINE CLEANER: 10/22/18 1222 ADM IN [place] [id number] [place] [address]
--- NOTE | 2018-10-23 19:01 | NUR ---
REPORT RECEIVED, SHIFT ASSESSMENT COMPLETED PER FLOW SHEET. AAOX4. PPP. 2 L O2 VIA NC. SUBSTERNAL DRESSING C/D/I, LT CT TO WILLIE DRAIN COMPRESSED WITH SEROSANGUINEOUS OUTPUT. RT IJ CVL NOTED, NO SIGNS OF INFECTION OR INFILTRATION. DENIES NEEDS. CALL LIGHT WITHIN REACH. SEE FLOW SHEET FOR COMPLETE ASSESSMENT. WILL CONTINUE TO MONITOR.
--- NOTE | 2018-10-23 21:41 | NUR ---
URINAL PROVIDED PER PATIENT'S REQUEST, 400 MLS JESUS UOP EMPTIED, DENIES OTHER NEEDS. CALL LIGHT WITHIN REACH.
--- NOTE | 2018-10-23 21:52 | NUR ---
C/O INCISIONAL PAIN, REQUESTING PAIN MEDICINE, PRN PERCOCET GIVEN, SEE EMAR FOR DETAILS. WILL CONTINUE TO MONITOR.
--- NOTE | 2018-10-23 23:11 | NUR ---
REASSESSMENT COMPLETED PER FLOW SHEET, SEE FOR DETAILS. NO ACUTE DISTRESS NOTED. DENIES NEEDS. CALL LIGHT WITHIN REACH. WILL CONTINUE TO MONITOR.
[2018-10-24] VITALS (31 sets, daily range): BP systolic 86–140; BP diastolic 44–84; Ht 182.9 cm; Wt 96.9 kg
--- NOTE | 2018-10-24 00:45 | NUR ---
CALL LIGHT ANSWERED, PATIENT REQUESTING TO USE BATHROOM, ASSISSTED OOB, GAIT STEADY, INFORMED HIM TO USE BR CALL LIGHT WHEN HE IS DONE, HE VERBALIZED UNDERSTANDING.
--- NOTE | 2018-10-24 00:51 | NUR ---
PATIENT STILL IN BR, NO ACUTE DISTRESS, STATES HE NEEDS MORE TIME. WILL CONTINUE TO MONITOR.
--- NOTE | 2018-10-24 01:02 | NUR ---
CALL LIGHT ANSWERED, NO BM, EMPTIED 370 MLS FROM URINAL, ASSISSTED BACK TO BED. DENIES OTHER NEEDS. CALL LIGHT WITHIN REACH. WILL CONTINUE TO MONITOR.
--- NOTE | 2018-10-24 02:56 | NUR ---
SHORT RUN OF CONTROLLED A-FIB NOTED ON MONITOR, PATIENT QUICKLY CONVERTED TO SINUS, LABS DRAWN.
[2018-10-24 03:24] LABS: MAGNESIUM - SERUM 2.2 mg/dL (1.8-2.4); POTASSIUM - SERUM 3.4 mmol/L (3.5-5.1)
--- NOTE | 2018-10-24 03:31 | NUR ---
10 MEQ KCL INFUSING PER PROTOCOL.
--- NOTE | 2018-10-24 04:50 | NUR ---
C/O NAUSEA DESPITE ZOFRAN GIVEN, PRN REGLAN GIVEN, ASSISSTED WITH SITTING ON SIDE OF BED PER HIS REQUEST. DENIES OTHER NEEDS. WILL CONTINUE TO MONITOR.
--- NOTE | 2018-10-24 05:00 | NUR ---
COMPLETE BED BATH GIVEN WITH SOAP AND WATER. SUBSTERNAL DRESSING CHANGED. COMPLETE LINEN CHANGE PROVIDED. ASSISSTED OOB TO CHAIR. TOLERATED ALL WELL. CALL LIGHT WITHIN REACH. WILL CONTINUE TO MONITOR.
--- NOTE | 2018-10-24 06:15 | NUR ---
DR WOOD INFORMED OF PT STATUS. NEW ORDER RECEIVED SEE SEP. WILL CONTINUE TO MONITOR.
[2018-10-24 06:16] LABS: BASOPHILS 0.1 % (0-2); EOSINOPHILS 0.1 % (0-7); HEMOGLOBIN 12.6 g/dL (13.5-17.5); IMMATURE GRANULOCYTES 0.3 % (0-5); LYMPHOCYTES 7.4 % (15-50); MCH 31.7 pg (26.0-34.0); MCV 90.5 fL (80.0-100.0); MEAN PLATELET VOLUME 10.8 fL (7.4-10.4); MONOCYTES 8.2 % (2-11); NEUTROPHILS 83.9 % (40-80); PLATELET COUNT 186 10x3/uL (130-400); RBC 3.98 10x6/uL (4.20-6.10); RDW 13.5 % (11.5-14.5)
[2018-10-24 06:28] LABS: WBC 16.3 10x3/uL (4.8-10.8)
[2018-10-24 06:33] LABS: ALBUMIN 2.6 g/dL (3.4-5.0); ALKALINE PHOSPHATASE 51 U/L (46-116); ALT (SGPT) 63 U/L (10-68); BILIRUBIN - TOTAL 1.81 mg/dL (0.2-1.3); CALC OSMOLALITY 272 mosm/kg (275-300); CALCIUM 7.4 mg/dL (8.5-10.1); CARBON DIOXIDE 29.5 mmol/L (21.0-32.0); CHLORIDE - SERUM 100 mmol/L (98-107); GLUCOSE 136 mg/dL (74-106); POTASSIUM - SERUM 3.5 mmol/L (3.5-5.1); SODIUM 135 mmol/L (136-145); UREA NITROGEN 15 mg/dL (7-18); eGFR NON AFRICAN AMERICAN 81 mL/min (90-120)
--- NOTE | 2018-10-24 08:15 | NUR ---
PT HAD EPISODE OF ACCELERATED HEART RATE. REACHED 150'S. APPEARED FLUTTER ON MONITOR. EKG OBTAINED. PT CONVERTED BACK TO SR NURSE REMOVING EKG LEADS. PT DENIED ANY SHORTNESS OF BREATH OR FEELING LIKE HEART RACING. JUST C/O BEING "HOT".
--- NOTE | 2018-10-24 17:41 | NUR ---
PT UP IN CHAIR. DID NOT EAT BUT A COUPLE OF BITES OF DINNER. PROVIDED TOOTHBRUSH, PASTE AND WATER AND PT BRUSHING TEETH AT THIS TIME. DENIES ANY ADDITIONAL NEEDS. CALL LIGHT IN REACH.
--- NOTE | 2018-10-24 17:49 | MORECARE ---
CASE MANAGEMENT DISCHARGE SUMMARY PATIENT: BESSY IBRAHIM UNIT: [id number] ADM DATE: 10/20/18 AGE: 58 : 60 SEX: M ROOM/BED: D.[facility] AUTHOR: HARRY ROSA PHYSICIAN: REFERRING PHYSICIAN: JOSE IRBY MD DATE OF SERVICE: 10/24/18 Discharge Plan Patient Name: BESSY IBRAHIM [facility] [facility] 1960 Planned Disposition: Home Anticipated Discharge Date: Discharge Date: Expected LOS: Initial Reviewer: [email or web address] Initial Review Date: 10/20/2018 Generated: 10/24/18 6:49 pm DCPIA - Discharge Planning Initial Assessment Updated by [email or web address]: Liliane Harris on 10/24/18 5:48 pm * Is the patient Alert and Oriented? Yes * How many steps to enter\exit or inside your home? * PCP [facility] IN [facility] OFFICE ? * [facility]acy [facility] * Preadmission Environment Home with Family * ADLs Independent * Equipment Walker * Other Equipment CANE * List name and contact numbers for known caregivers / representatives who currently or will assist patient after discharge: Feliberto Ibrahim - ex- - [phone] Rocio Mendez - daughter- [phone] * Verbal permission to speak to the caregivers and representatives has been obtained from the patient. Yes * Community resources currently utilized None * Additional services required to return to the preadmission environment? No * Can the patient safely return to the preadmission environment? Yes * Has this patient been hospitalized within the prior 30 days at any hospital? No Patient Name: BESSY IBRAHIM Page [phone] at 1749 All edits/amendments must be made on the electronic document DICTATION DATE: 10/24/181747 COREMAKER EXPERIMENTAL: FANG 10/24/181747 RPT#: [id number] DC DATE: STATUS: ADM IN [facility] [address] [place] [address] END OF REPORT
--- NOTE | 2018-10-24 17:57 | MORECARE ---
CASE MANAGEMENT DISCHARGE SUMMARY PATIENT: BESSY IBRAHIM UNIT: [id number] ADM DATE: 10/20/18 AGE: 58 : 60 SEX: M ROOM/BED: D[facility] AUTHOR: SHELLEY,DOC PHYSICIAN: REFERRING PHYSICIAN: JOSE IRBY MD DATE OF SERVICE: 10/24/18 Discharge Plan Patient Name: BESSY IBRAHIM Facility: [facility]:[place] : 1960 Planned Disposition: Home Anticipated Discharge Date: Discharge Date: Expected LOS: Initial Reviewer: [email or web address] Initial Review Date: 10/20/2018 Generated: 10/24/18 6:57 pm Comments DCP- Discharge Planning Updated by [email or web address]: Liliane Harris on 10/24/18 4:[address] Patient Name: BESSY IBRAHIM Admission Status: Elective Accout number: [id number] Admission Date: 10-20-2018 : 1960 Admission Diagnosis:CHEST PAIN, UNSPECIFIED Attending: JOSE IRBY Current LOS: 4 Anticipated DC Date: Planned Disposition: Home Primary Insurance: MEDICARE A & B Discharge Planning Comments: CM met with patient, ex- (Feliberto) and daughter (Rocio) at bedside after explaining CM role and obtaining verbal consent. Patient lives at home with his ex- Feliberto and plans to return there upon discharge. Patient feels this would be a safe discharge. CM discussed availability / needs of home health and medical equipment. Patient may need walk test if still requiring 02 at discharge. Patient states he has a walker and cane at home. Patient denies any discharge needs at this time. Patient states he will have his family drive him home upon discharge. CM will continue to follow and assist as needed with discharge planning / needs. Wind Development Director: Liliane Harris DCPIA - Discharge Planning Initial Assessment Updated by [email or web address]: Liliane Harris on 10/24/18 5:48 pm * Is the patient Alert and Oriented? Yes * How many steps to enter\exit or inside your home? * PCP [facility] IN [place] OFFICE ? * Pharmacy [facility] * Preadmission Environment Home with Family * ADLs Independent * Equipment Walker * Other Equipment CANE * List name and contact numbers for known caregivers / representatives who currently or will assist patient after discharge: Feliberto Ibrahim - ex- - [phone] Rocio Mendez - daughter- [phone] * Verbal permission to speak to the caregivers and representatives has been obtained from the patient. Yes * Community resources currently utilized None * Additional services required to return to the preadmission environment? No * Can the patient safely return to the preadmission environment? Yes * Has this patient been hospitalized within the prior 30 days at any hospital? No Last DP export: 10/24/18 4:49 pm Patient Name: BESSY IBRAHIM Page [phone] at 1757 All edits/amendments must be made on the electronic document DICTATION DATE: 10/24/181756 PERSONAL COMPUTER SPECIALIST: FANG 10/24/181756 RPT#: [id number] DC DATE: STATUS: ADM IN [facility] [address] [place] [address] END OF REPORT
--- NOTE | 2018-10-24 19:16 | NUR ---
INFORMED BY DAY SHIFT RN TO TURN OFF AMIODARONE DRIP 3 HRS AFTER PO AMIODARONE HAS BEEN GIVEN.
--- NOTE | 2018-10-24 19:21 | NUR ---
REPORT RECEIVED, SHIFT ASSESSMENT COMPLETED PER FLOW SHEET. SITTING UP IN CHAIR, AWAKE AND ALERT. PPP. SUBSTERNAL DRESSING C/D/I, TPM WIRES SECURED, LT WILLIE DRAIN COMPRESSED WITH SEROSANGUINEOUS OUTPUT. DENIES NEEDS AT THIS TIME. RT IJ CVL PATENT, NO SIGNS OF INFECTION OR INFILTRATION. SEE FLOW SHEET FOR COMPLETE ASSESSMENT. CALL LIGHT WITHIN REACH. WILL CONTINUE TO MONITOR.
--- NOTE | 2018-10-24 21:11 | NUR ---
SCHEDULED MEDS GIVEN, WATER PROVIDED, SITTING UP IN CHAIR, STATES HE DOES NOT WANT TO GO TO BED AT THIS TIME. DENIES NEEDS. CALL LIGHT WITHIN REACH.
--- NOTE | 2018-10-24 23:14 | NUR ---
REASSESSMENT COMPLETED PER FLOW SHEET, SEE FOR DETAILS. NO ACUTE CHANGES NOTED. DENIES NEEDS. CALL LIGHT WITHIN REACH. WILL CONTINUE TO MONITOR.
[2018-10-25] VITALS (34 sets, daily range): BP systolic 93–134; BP diastolic 48–78
--- NOTE | 2018-10-25 00:12 | NUR ---
AMIODARONE DRIP TURNED OFF THIS TIME ORDERED.
--- NOTE | 2018-10-25 01:00 | NUR ---
CALL LIGHT ANSWERED, ASSISSTED TO BR, VOIDED X1, NO BM, DENIES N/V, BOWEL SOUNDS ACTIVE X4, PASSING GAS. ASSISSTED TO BED, DENIES OTHER NEEDS. CALL LIGHT WITHIN REACH. WILL CONTINUE TO MONITOR.
--- NOTE | 2018-10-25 03:01 | NUR ---
REASSESSMENT COMPLETED PER FLOW SHEET, SEE FOR DETAILS. NO ACUTE CHANGES NOTED. DENIES NEEDS AT THIS TIME. VSS. WILL CONTINUE TO MONITOR.
--- NOTE | 2018-10-25 04:17 | NUR ---
XR PERSONNEL AT BEDSIDE FOR AM CHEST XR
--- NOTE | 2018-10-25 05:00 | NUR ---
CALL LIGHT ANSWERED, PATIENT HAD LARGE LIQUID GREEN BM IN BED, ASSISSTED HIM UP TO BR. COMPLETE BED BATH GIVEN WITH SOAP AND WATER. COMPLETE BED LINEN CHANGE PROVIDED. ASSISSTED HIM TO CHAIR. DENIES OTHER NEEDS. CALL LIGHT WITHIN REACH. WILL CONTINUE TO MONITOR.
--- NOTE | 2018-10-25 06:11 | NUR ---
SCHEDULED MEDS GIVEN, WATER WITH ICE PROVIDED. DENIES OTHER NEEDS. CALL LIGHT WITHIN REACH.
[2018-10-25 06:30] LABS: BASOPHILS 0.1 % (0-2); EOSINOPHILS 1.5 % (0-7); HEMATOCRIT 33.9 % (42.0-54.0); HEMOGLOBIN 11.6 g/dL (13.5-17.5); IMMATURE GRANULOCYTES 0.1 % (0-5); LYMPHOCYTES 13.4 % (15-50); MCH 30.9 pg (26.0-34.0); MCHC 34.2 g/dL (31.0-37.0); MCV 90.4 fL (80.0-100.0); MEAN PLATELET VOLUME 10.6 fL (7.4-10.4); MONOCYTES 12.7 % (2-11); NEUTROPHILS 72.2 % (40-80); PLATELET COUNT 208 10x3/uL (130-400); RBC 3.75 10x6/uL (4.20-6.10); RDW 13.6 % (11.5-14.5)
[2018-10-25 06:36] LABS: WBC 9.4 10x3/uL (4.8-10.8)
[2018-10-25 07:39] LABS: ALBUMIN 2.4 g/dL (3.4-5.0); ALKALINE PHOSPHATASE 62 U/L (46-116); ALT (SGPT) 63 U/L (10-68); BILIRUBIN - TOTAL 1.57 mg/dL (0.2-1.3); CALC OSMOLALITY 270 mosm/kg (275-300); CALCIUM 7.5 mg/dL (8.5-10.1); CHLORIDE - SERUM 100 mmol/L (98-107); CREATININE - SERUM 0.9 mg/dL (0.6-1.3); GLUCOSE 110 mg/dL (74-106); POTASSIUM - SERUM 3.6 mmol/L (3.5-5.1); SODIUM 134 mmol/L (136-145); UREA NITROGEN 18 mg/dL (7-18); eGFR NON AFRICAN AMERICAN > 90 mL/min (90-120)
--- NOTE | 2018-10-25 08:45 | NUR ---
PT AGAIN SHOWING BRADYCARDIA AND IRREGULAR RHYTHM. PLACED ON TPM AT VVI.
--- NOTE | 2018-10-25 09:00 | NUR ---
WILLIE DRAIN EMPTIED FOR SECOND TIME SINCE START OF SHIFT.
--- NOTE | 2018-10-25 12:27 | NUR ---
PT RETURNED TO BED AND TPM TURNED OFF PER DR WOOD.
--- NOTE | 2018-10-25 12:27 | NUR ---
PT COUGHED UP BRIGHT RED MUCUS. LUNGS DIMINISHED. ORAL CAVITY CHECKED WITH LIGHT TO SEE IF BLEEDING TEETH/WOUND. NO EVIDENCE OF. NO ADDITIONAL COUGHING/BLEEDING NOTED.
--- NOTE | 2018-10-25 14:13 | NUR ---
PT ASSISTED UP TO TOILET. URINATED ONLY.
--- NOTE | 2018-10-25 15:09 | NUR ---
STRIP RUN TO SHOW DR WOOD. PT NOW IN FIB/FLUTTER. NEW ORDERS RECEIVED.
--- NOTE | 2018-10-25 18:42 | NUR ---
PT ASSISTED UP TO TOILET.
--- NOTE | 2018-10-25 21:10 | NUR ---
ISRAEL NOTIFIED OF CONTINUED BRADYCARDIA, RATE IN THE 40'S. 2100 AMIODARONE TO BE HELD.
--- NOTE | 2018-10-25 21:45 | NUR ---
HS MEDS GIVEN, AMIODARONE HELD. PT REPOSITIONED FOR COMFORT. DENIES NEEDS. CALL LIGHT AND BEDSIDE TABLE WITHIN PT REACH. CPOC.
--- NOTE | 2018-10-25 23:00 | NUR ---
REASSESSMENT COMPLETE, NO NEW CHANGES AT THIS TIME. FRESH WATER TO BEDSIDE. PT REPOSITIONED FOR COMFORT, PARTIAL LINEN CHANGE COMPELTE. NO C/O AT THIS TIME, DENIES FURTHER NEEDS. CALL LIGHT AND BEDSIDE TABLE WITHIN PT REACH. CPOC.
[2018-10-26] VITALS (32 sets, daily range): BP systolic 93–142; BP diastolic 50–76
--- NOTE | 2018-10-26 00:15 | NUR ---
PT IN AFIB, RATE 80-90'S. ISRAEL NOTIFIED, NO NEW ORDERS GIVEN AT THIS TIME. CPOC.
--- NOTE | 2018-10-26 03:00 | NUR ---
REASSESSMENT COMPLETE, NO NEW CHANGES AT THIS TIME. PT REPOSITIONS SELF INDEPENDENTLY. REMAINS BRADYCARDIC ON MONITOR RATE IN THE 40'S. AOX4, NO C/O PAIN. DENIES NEEDS. CALL LIGHT AND BEDSIDE TABLE WITHIN PT REACH. CPOC.
--- NOTE | 2018-10-26 05:30 | NUR ---
CVL DRSG CHANGED AND DATED 10/26/18. VSS. PT REPOSITIONED FOR COMFORT. FRESH WATER TO BEDSIDE. DENIES FURTHER NEEDS. CALL LIGHT AND BEDSIDE TABLE WITHIN PT REACH. CPOC.
[2018-10-26 06:39] LABS: HEMATOCRIT 32.3 % (42.0-54.0); MCHC 34.1 g/dL (31.0-37.0); MEAN PLATELET VOLUME 10.7 fL (7.4-10.4); PLATELET COUNT 236 10x3/uL (130-400); RBC 3.55 10x6/uL (4.20-6.10); RDW 13.8 % (11.5-14.5); WBC 7.6 10x3/uL (4.8-10.8)
--- NOTE | 2018-10-26 08:47 | NUR ---
Nutrition Follow Up: AHA Cardiac diet with 0-25% po intake Pt reports mouth soreness has improved Pt reports no problems chewing foods even pork or steak Pt reports foods dont taste good and pt reports being a picky eater Weight 219lb on October 22 Weight 210lb today Pt does not like Ensure-Will add milk to all trays Will liberalize diet to regular in hopes to increase po intake RD following
--- NOTE | 2018-10-26 09:07 | NUR ---
0700 PT RECIEVED IN BED, ALERT AN DORIENTED ON ROOM AIR, ASSISTED TO CHAIR, HR SINUS DANY, DENIES PAIN, R IJ CVL DRESSING CDI, SL, MIDSTERNAL DRESSING CDI, SUBSTERNAL TPM WIRES AND WILLIE DRAIN CDI WITH WILLIE DRAIN COMPRESSED, SEROUS DRAINAGE, RLE HARVEST SITES WITH GLUE CDI, CALL LIGHT AND URINAL WITHIN REACH [address] WOOD, OKAYED AMBULATION WITH PT PER DR WOOD, TOOK AM MEDS AND TOLERATED BREAKFAST WITHOUT DIFFICULTY
[2018-10-26 09:30] LABS: POTASSIUM - SERUM 3.9 mmol/L (3.5-5.1)
[2018-10-26 09:48] LABS: APTT 34.7 SECONDS (22.8-39.4); INR 1.06 (0.85-1.17); PROTIME 13.3 SECONDS (11.6-15.0)
[2018-10-26 09:52] LABS: BASOPHILS 0.1 % (0-2); EOSINOPHILS 2.2 % (0-7); IMMATURE GRANULOCYTES 0.1 % (0-5); LYMPHOCYTES 22.7 % (15-50); MONOCYTES 13.6 % (2-11); NEUTROPHILS 61.3 % (40-80)
[2018-10-26 09:58] LABS: CALC OSMOLALITY 278 mosm/kg (275-300); CALCIUM 7.4 mg/dL (8.5-10.1); CHLORIDE - SERUM 103 mmol/L (98-107); CREATININE - SERUM 0.9 mg/dL (0.6-1.3); GLUCOSE 92 mg/dL (74-106); SODIUM 139 mmol/L (136-145); UREA NITROGEN 16 mg/dL (7-18); eGFR NON AFRICAN AMERICAN > 90 mL/min (90-120)
--- NOTE | 2018-10-26 12:00 | NUR ---
ATE 75% LUN
--- NOTE | 2018-10-26 14:16 | NUR ---
AMBULATED 150 FT WITH THERAPY, WENT INTO AFIB 80-105, NOTIFIED DR BOOKER NURSE SAGE
--- NOTE | 2018-10-26 14:39 | NUR ---
PT CONVERTED TO NSR 60S THEN 40S, DR JHONY CAZARES NOTIFIED, PT AGAIN BACK IN FLUTTER HR 90, DR JHONY CAZARES NOTIFIED
--- NOTE | 2018-10-26 15:11 | NUR ---
SPOKE LEX BOOKER NURSE, PT BACK IN SINUS HR 40, NO NEW ORDERS, ALARMS SET ON MONITOR
--- NOTE | 2018-10-26 17:37 | NUR ---
PT ATE 25% DINNER AND WAS ASSISTED BACK TO BED, TOLERATED WELL, HR REMAINS SR 40S
--- NOTE | 2018-10-26 19:10 | NUR ---
PT REPOSITIONED WITH PROMINENCES BRIDGED, HEATING PAD PLACED ON LOWER BACK FOR COMFORT. PARTIAL LINEN CHANGE. SHIFT ASSESSMENT COMPLETE, SEE FLOWSHEET FOR ALL FINDINGS. COUGH/DB WITH GOOD EFFORT, PRODUCTIVE COUGH. I/S COMPLETED REACHING 1000 X10. DENIES FURTHER NEEDS AT THIS TIME. CALL LIGHT AND BEDSIDE TABLE WITHIN PT REACH. CPOC.
--- NOTE | 2018-10-26 20:10 | NUR ---
HS MEDS GIVEN, PT REPOSITIONED FOR COMFORT. NO CHANGES AT THIS TIME, DENIES NEEDS. CALL LIGHT AND BEDSIDE TABLE WITHIN PT REACH. CPOC.
--- NOTE | 2018-10-26 23:00 | NUR ---
REASSESSMENT COMPLETE, SEE FLOWSHEET FOR ALL FINDINGS. PT REPOSITIONED FOR COMFORT. I/S COMPLETE REACHING 1000 X10. VSS, NO C/O PAIN AT THIS TIME. PT DENIES NEEDS. CALL LIGHT AND BEDSIDE TABLE WITHIN PT REACH. CPOC.
[2018-10-27] VITALS (30 sets, daily range): BP systolic 95–164; BP diastolic 59–89
--- NOTE | 2018-10-27 01:00 | NUR ---
PT SLEEPING QUIETLY WITH UNLABORED RESPIRATIONS. VSS, NO S/S OF PAIN OR ACUTE DISTRESS. REPOSITIONS SELF INDEPENDENTLY. CALL LIGHT WITHIN PT REACH. CPOC.
--- NOTE | 2018-10-27 03:00 | NUR ---
REASSESSMENT COMPLETE, NO NEW CHANGES AT THIS TIME. PT RESTING QUIETLY WITH UNLABORED RESPIRATIONS. VSS, NO S/S OF PAIN OR ACUTE DISTRESS NOTED. PT REPOSITIONED SELF INDEPENDENTLY. DENIES NEEDS. CALL LIGHT AND BEDSIDE TABLE WITHIN PT REACH. CPOC.
--- NOTE | 2018-10-27 06:00 | NUR ---
COMPLETE BATH AND LINEN CHANGE PROVIDED. UP TO CHAIR, VSS. NO S/S OF DISTRESS AT THIS TIME. NO C/O PAIN AT THIS TIME.
[2018-10-27 06:05] LABS: HEMATOCRIT 33.1 % (42.0-54.0); HEMOGLOBIN 11.4 g/dL (13.5-17.5); MCH 31.1 pg (26.0-34.0); MCHC 34.4 g/dL (31.0-37.0); MCV 90.2 fL (80.0-100.0); RBC 3.67 10x6/uL (4.20-6.10); RDW 13.7 % (11.5-14.5); WBC 8.7 10x3/uL (4.8-10.8)
[2018-10-27 06:14] LABS: CALC OSMOLALITY 283 mosm/kg (275-300); CALCIUM 7.4 mg/dL (8.5-10.1); CARBON DIOXIDE 25.3 mmol/L (21.0-32.0); CHLORIDE - SERUM 108 mmol/L (98-107); CREATININE - SERUM 0.9 mg/dL (0.6-1.3); GLUCOSE 96 mg/dL (74-106); SODIUM 142 mmol/L (136-145); UREA NITROGEN 15 mg/dL (7-18); eGFR NON AFRICAN AMERICAN > 90 mL/min (90-120)
--- NOTE | 2018-10-27 08:36 | NUR ---
0700 PT RECIEVED ALERT AND ORIENTED VSS HR NSR 60S DENIES PAIN R IJ CVL DRESSING CDI SL, MIDSTERNAL AND SUBSTERNAL DRESSINGS CDI WITH SUBSTERNAL TPM WIRES AND WILLIE DRAIN, WILLIE DRAIN COMPRESSED WITH SEROUS DRAINAGE, RLE HARVEST SITES WITH GLUE CDI, TEDS AND SCDS IN PLACE, NPO 0755 DR WOOD IN UNIT, NOTIFIED PT BEING IN NSR, ORDERS TO DC PPM SURGERY, PLACE PIV, DC CVL, AMBULATE, MONITOR WILLIE DRAIN OUTPUT, BREAKFAST. 20GPIV TO RFA INSERTED WITH GOOD BLOOD RETURN FLUSHES EASILY, ORDERED BREAKFAST TRAY, WILL EAT AND AMBULATE THEN DC CVL.
--- NOTE | 2018-10-27 09:33 | NUR ---
PT AMBULATED 500FT ON ROOM AIR REMAINED IN NSR, NOTIFIED SAGE BOOKER NURSE, DCD CVL, EMPTIED 40ML WILLIE DRAIN
--- NOTE | 2018-10-27 10:33 | NUR ---
PT HR BACK TO 40, THEN 60 THEN BACK TO 40 THEN 60S NSR AGAIN, NO CHANGE IN BP, DR BOOKER NURSE SAGE NOTIFIED, ORDERS FOR NPO
--- NOTE | 2018-10-27 15:00 | NUR ---
1200 ATE 50% LUNCH 1500 ASSISTED TO BATHROOM, HAD BM
[2018-10-27] MEDS ORDERED: COLACE100 MG PO (16:17)
[2018-10-27] MEDS ORDERED: Senokot-S Tablet PO (16:18)
[2018-10-27] MEDS ORDERED: PERCOCET 5-3251 TAB PO (16:19)
--- NOTE | 2018-10-27 16:38 | NUR ---
SUBSTERNAL DRESSING CHANGED, DR WOOD IN ROM ORDERS FOR 2.5 LISINOPROL NOW AND DAILY
--- NOTE | 2018-10-27 19:00 | NUR ---
Shift assessment complete, please see flow sheets for details. Denies pain/needs. Hemodynamically stable. Bed low and locked, call light in reach. Will continue plan of care.
--- NOTE | 2018-10-27 21:10 | NUR ---
Tolerated PO well. Hemidynamically stable. Denies any other needs. Bed low and locked, call light in reach. Will continue plan of care.
--- NOTE | 2018-10-27 23:00 | NUR ---
Reassessment complete, please see flow sheets for details. No acute changes from previous assessment to note. Hemodynamically stable. Bed low and locked, call light in reach. Will continue plan of care.
[2018-10-28] VITALS (12 sets, daily range): BP systolic 121–155; BP diastolic 72–88
--- NOTE | 2018-10-28 01:00 | NUR ---
Sleeping. Hemodynamically stable. Will continue plan of care.
--- NOTE | 2018-10-28 03:00 | NUR ---
Reassessment complete, please see flow sheets for details. No acute changes to note. Hemodynamically stable. Bed low and locked, call light in reach. Will continue plan of care.
--- NOTE | 2018-10-28 05:00 | NUR ---
Went for PA and LAT Xray's. Tolerated activity well. Up to chair upon return. Denies pain/needs. Will continue plan of care.
[2018-10-28 06:32] LABS: CALC OSMOLALITY 278 mosm/kg (275-300); CALCIUM 7.7 mg/dL (8.5-10.1); CARBON DIOXIDE 22.2 mmol/L (21.0-32.0); CHLORIDE - SERUM 108 mmol/L (98-107); CREATININE - SERUM 0.8 mg/dL (0.6-1.3); GLUCOSE 107 mg/dL (74-106); POTASSIUM - SERUM 3.8 mmol/L (3.5-5.1); SODIUM 140 mmol/L (136-145); UREA NITROGEN 13 mg/dL (7-18); eGFR NON AFRICAN AMERICAN > 90 mL/min (90-120)
[2018-10-28 06:53] LABS: HEMATOCRIT 35.3 % (42.0-54.0); HEMOGLOBIN 12.2 g/dL (13.5-17.5); MCHC 34.6 g/dL (31.0-37.0); MCV 89.8 fL (80.0-100.0); MEAN PLATELET VOLUME 10.2 fL (7.4-10.4); RBC 3.93 10x6/uL (4.20-6.10); RDW 13.8 % (11.5-14.5); WBC 9.4 10x3/uL (4.8-10.8)
--- NOTE | 2018-10-28 07:00 | NUR ---
SHIFT REPORT RECEIVED. SITTING UP IN CHAIR. DENIES HAVING PAIN. SOME DISCOMFORT WHEN HE COUGHS. ON ROOM AIR. VSS. NO FEVER NOTED. MIDSTERNAL DRESSING C/D/I. SUBTERNAL DRESSING C/D/I. TPM WIRES X [address] PL[address] WITH SEROUS DRAINAGE NOTED. RIGHT LEG HARVEST SITES WELL APPROXIMATED. RICHARD'S ON BOTH LE. HAS L-FOREARM PIV S.L. SHIFT ASSESSMENT COMPLETED. NO FURTHER NEEDS. WILL CONTINUE TO MONITOR.
--- NOTE | 2018-10-28 09:08 | NUR ---
AM MEDS GIVEN. AMBUTATED BACK TO BED. NO FURTHER NEEDS AT THIS TIME. WILL CONTINUET TO MONITOR.
[2018-10-28] MEDS ORDERED: LISINOPRIL5 MG PO (09:10)
--- NOTE | 2018-10-28 09:23 | NUR ---
Nutrition Follow Up: Chart reviewed Diet: AHA PO Intake: 18% meal avg - po intake continues poor I<O Wt loss noted BM: 10/27/18 Meds and labs reviewed Rec liberalizing diet to encourage po intake. Pt is not meeting est nutritional needs. Will continue to honor food preferences. RD following.
--- NOTE | 2018-10-28 09:30 | NUR ---
AMBULATED WITH PHYSICAL THERAPY AT THIS TIME.
--- NOTE | 2018-10-28 09:40 | NUR ---
SAGE THAYER IN ROOM AT THIS TIME.
--- NOTE | 2018-10-28 14:30 | NUR ---
DISCHARGE INTRUCTIONS REVIEWED WITH PATIENT AND FAMILY. PIV ON R-FOREARM DC'D WITH CATHETER TIP INTACT. PERSONAL BELONGINGS SENT WITH PATIENT. WHEELED OUT IN WHEELCHAIR TO PERSONAL VEHICLE.
--- NOTE | 2018-10-28 15:25 | MORECARE ---
CASE MANAGEMENT DISCHARGE SUMMARY PATIENT: BESSY IBRAHIM UNIT: [id number] ADM DATE: 10/20/18 AGE: 58 : 60 SEX: M ROOM/BED: D[facility] AUTHOR: SHELLEY,DOC PHYSICIAN: REFERRING PHYSICIAN: JOSE IRBY MD DATE OF SERVICE: 10/28/18 Discharge Plan Patient Name: BESSY IBRAHIM Facility: [facility]:[place] : 1960 Planned Disposition: Home Anticipated Discharge Date: Discharge Date: 10/28/2018 Expected LOS: Initial Reviewer: [email or web address] Initial Review Date: 10/20/2018 Generated: 10/28/18 4:25 pm Comments DCP- Discharge Planning Updated by [email or web address]: Liliane Harris on 10/28/18 2:[address] Patient Name: BESSY IBRAHIM Encounter No: [id number] : 1960 Primary Insurance: MEDICARE A & B Anticipated DC Date: Planned Disposition: Home External Planned Provider: : Deborah/Walker PAYNE EXPLAINED AND SERVED 10/28/18 @ 0955 DCP follow-up note: Patient and family in agreement with discharge plan. No changes to plan. Case management will follow and assist as needed. Liliane Harris DCP- Discharge Planning Updated by [email or web address]: Liliane Harris on 10/24/18 4:[address] Patient Name: BESSY IBRAHIM Admission Status: Elective Accout number: [id number] Admission Date: 10-20-2018 : 1960 Admission Diagnosis:CHEST PAIN, UNSPECIFIED Attending: JOSE IRBY Current LOS: 4 Anticipated DC Date: Planned Disposition: Home Primary Insurance: MEDICARE A & B Discharge Planning Comments: CM met with patient, ex- (Feliberto) and daughter (Rocio) at bedside after explaining CM role and obtaining verbal consent. Patient lives at home with his ex- Feliberto and plans to return there upon discharge. Patient feels this would be a safe discharge. CM discussed availability / needs of home health and medical equipment. Patient may need walk test if still requiring 02 at discharge. Patient states he has a walker and cane at home. Patient denies any discharge needs at this time. Patient states he will have his family drive him home upon discharge. CM will continue to follow and assist as needed with discharge planning / needs. Chisel Grinder: Liliane Harris DCPIA - Discharge Planning Initial Assessment Updated by [id number]: Liliane Harris on 10/24/18 5:48 pm * Is the patient Alert and Oriented? Yes * How many steps to enter\exit or inside your home? * PCP [facility] ? * [facility]acy [facility] * Preadmission Environment Home with Family * ADLs Independent * Equipment Walker * Other Equipment CANE * List name and contact numbers for known caregivers / representatives who currently or will assist patient after discharge: Feliberto Ibrahim - ex- - [phone] Rocio Mendez - daughter- [phone] * Verbal permission to speak to the caregivers and representatives has been obtained from the patient. Yes * Community resources currently utilized None * Additional services required to return to the preadmission environment? No * Can the patient safely return to the preadmission environment? Yes * Has this patient been hospitalized within the prior 30 days at any hospital? No Coverage Notice Reviewer: [id number] - Liliane Harris Notice Issued Date-Time: 10/28/2018 9:55 Notice Type: IM Discharge Notice Notice Delivered To: Patient Relationship to Patient: Self Trimmer Operator Name: Delivery Method: HAND - Hand Delivered [place] Days: Prior Verbal Notification: Recipient Understood Notice: Yes Recipient Signature: Yes Med Rec Note Co-signed by Attending: Coverage Notice Comment: Last DP export: 10/24/18 4:57 pm Patient Name: BESSY IBRAHIM Page [id number] at 1525 All edits/amendments must be made on the electronic document DICTATION DATE: 10/28/18 1525 TOOL CRIB MANAGER: FANG 10/28/18 1525 RPT#: [id number] DC DATE:10/28/18 STATUS: DIS IN [facility] [address] [place] [address] END OF REPORT
== END 2018-10-28 14:45 | disposition home or self-care (01) | DRG 234 ==
LOC: D.CATH 11:58 → D.CVICU 15:05 → D.CLR 15:05 → D.M2 15:05 → D.CVICU 10-21 09:21
PROVIDERS: Family Medicine; Thoracic Surgery (Cardiothoracic Vascular Surgery); ADMIT Internal Medicine Interventional Cardiology; ATTEND Internal Medicine Interventional Cardiology
PROC: B2111ZZ Fluoroscopy of Multiple Coronary Arteries using Low Osmolar Contrast (ICD-10-PCS; 2018-10-20)
PROC: B2151ZZ Fluoroscopy of Left Heart using Low Osmolar Contrast (ICD-10-PCS; 2018-10-20)
PROC: 4A023N7 Measurement of Cardiac Sampling and Pressure, Left Heart, Percutaneous Approach (ICD-10-PCS; 2018-10-20)
PROC: 02110Z9 Bypass Coronary Artery, Two Arteries from Left Internal Mammary, Open Approach (ICD-10-PCS; 2018-10-21)
PROC: 06BP4ZZ Excision of Right Saphenous Vein, Percutaneous Endoscopic Approach (ICD-10-PCS; 2018-10-21)
PROC: 5A1221Z Performance of Cardiac Output, Continuous (ICD-10-PCS; 2018-10-21)
PROC: B245ZZ4 Ultrasonography of Left Heart, Transesophageal (ICD-10-PCS; 2018-10-21)
PROC: 021109W Bypass Coronary Artery, Two Arteries from Aorta with Autologous Venous Tissue, Open Approach (ICD-10-PCS; principal; 2018-10-21 07:30)
DX: I25.119 Atherosclerotic heart disease of native coronary artery with unspecified angina pectoris (principal); I31.9 Disease of pericardium, unspecified; I25.82 Chronic total occlusion of coronary artery; G20 Parkinson's disease; I10 Essential (primary) hypertension; K21.9 Gastro-esophageal reflux disease without esophagitis; I25.5 Ischemic cardiomyopathy; J44.9 Chronic obstructive pulmonary disease, unspecified; Z87.891 Personal history of nicotine dependence; R00.1 Bradycardia, unspecified; I48.0 Paroxysmal atrial fibrillation

== ENCOUNTER → 2018-11-15 13:04 | Outpatient (CLI) | payer MEDICARE ==
[~2018-11-15 13:04] MED LIST changes: +COLACE100 MG PO; +LIPITOR80 MG PO; +LISINOPRIL40 MG PO; +LISINOPRIL5 MG PO; +METOPROLOL TART25 MG PO; +MIRAPEX0.125 MG PO; +PERCOCET 5-3251 TAB PO; +PLAVIX75 MG PO; +SINGULAIR10 MG PO; +Senokot-S Tablet PO
[2018-11-15 13:35] LABS: HEMATOCRIT 40.1 % (42.0-54.0); MCH 31.5 pg (26.0-34.0); MCHC 34.9 g/dL (31.0-37.0); MCV 90.3 fL (80.0-100.0); MEAN PLATELET VOLUME 9.6 fL (7.4-10.4); RBC 4.44 10x6/uL (4.20-6.10); RDW 13.3 % (11.5-14.5); WBC 9.4 10x3/uL (4.8-10.8)
[2018-11-15 13:59] LABS: ALBUMIN 3.4 g/dL (3.4-5.0); ALKALINE PHOSPHATASE 115 U/L (46-116); ALT (SGPT) 29 U/L (10-68); BILIRUBIN - TOTAL 1.22 mg/dL (0.2-1.3); CALC OSMOLALITY 282 mosm/kg (275-300); CALCIUM 8.6 mg/dL (8.5-10.1); CARBON DIOXIDE 23.2 mmol/L (21.0-32.0); CHLORIDE - SERUM 104 mmol/L (98-107); GLUCOSE 145 mg/dL (74-106); POTASSIUM - SERUM 3.7 mmol/L (3.5-5.1); PROTEIN - SERUM 7.3 g/dL (6.4-8.2); SODIUM 141 mmol/L (136-145); UREA NITROGEN 10 mg/dL (7-18); eGFR NON AFRICAN AMERICAN 81 mL/min (90-120)
== END | disposition home or self-care (01) ==
LOC: D.LAB 13:04
PROVIDERS: Thoracic Surgery (Cardiothoracic Vascular Surgery)
DX: J90 Pleural effusion, not elsewhere classified (principal); D64.9 Anemia, unspecified

== ENCOUNTER → 2018-11-22 07:48 | Outpatient (CLI) | payer MEDICARE ==
[2018-10-24 08:43] VITALS: BMI 29.6
--- NOTE | ~2018-11-22 | EC ---
PATIENT:BESSY KOTHARI DATE OF SERVICE: 11/22/18 SEX: M MEDICAL RECORD: [id number] DATE OF : 60 LOCATION:D.[facility] AGE OF PATIENT: 58 ADMISSION DATE: 11/22/18 REFERRING PHYSICIAN: INTERPRETING PHYSICIAN: JOSE IRBY MD ECHOCARDIOGRAM REPORT ECHO CHARGES 4 ECHO COMPLETE Date: 11/22/18 CLINICAL DIAGNOSIS: HTN, RECENT RI/CABG, ASSESS EF POST CABG ECHOCARDIOGRAPHIC MEASUREMENTS (adult normal given) AC root (d.<3.7cm) 3.6 cm LV Septum d (<1.2 cm> 1.1 cm Valve Excursion 1.7 cm LV Septum (systole) 1.3 cm Left Atria (s.<4.0cm> 3.8 cm LVPW d(<1.2cm) 1.2 cm RV (d.<2.3cm) 4.0 cm LVPW (sytole) 1.4 cm LV diastole(<5.6CM) 6.1 cm MV E-F(>70mm/sec) cm LV systole 4.5 cm LVOT Diameter 1.9 cm MV exc.(>10mm) 1.3 cm Est.ejection fraction (50-75%) % DOPPLER: LVIT cm/sec A 68.0 cm/sec E 90.0 cm/sec LA cm/sec RVSP 15 mmHg LVOT 118 cm/sec AOP1/2T m/s Asc. Ao 141 cm/sec RVOT 60 cm/sec RA cm/sec PA 131 cm/sec AV Gradient Peak 8.00 mmHg AV Mean 4.12 mmHg AV Area 2.2 cm MV Gradient Peak 3.73 mmHg MV Mean 1.25 mmHg MV Area cm COMMENTS: Insight Director: 2 REBECCA BELL Compliance Engineer: 3 Dr. Whittaker TAPE# PACS Pericardial Effusion N DATE OF SERVICE: Adequate 2D, color flow, spectral Doppler, and M-Mode. No LVH. LV internal dimensions are dilated. LV shows mild global hypo LV function, lower limits of normal, mildly reduced at 40% to 45%. Aortic valve sclerosis without evidence of stenosis on Doppler interrogation. Left atrium is normal at 3.8 cm. Mitral valve shows no prolapse. Mild MR. Right-sided chambers grossly normal. Mild TR. TRANSINT:[id number] Voice Confirmation ID: [id number] DOCUMENT ID: [id number] ECHOCARDIOGRAM REPORT [id number] BESSY KOTHARI GREGORY A MD CC: [id number] DICTATION DATE: 11/22/18 1544 CLEANER HOUSEKEEPING: 11/22/18 1636 [facility] [address] [place] [id number]
== END | disposition home or self-care (01) ==
LOC: D.HCCARDIO 07:48
PROVIDERS: ATTEND Internal Medicine Interventional Cardiology
DX: I10 Essential (primary) hypertension (principal)

== ENCOUNTER → 2019-02-24 13:48 | Outpatient (CLI) | payer MEDICARE, MEDICAID ==
[2018-10-24 08:43] VITALS: BMI 29.6
--- NOTE | 2019-02-28 09:29 | EC ---
PATIENT:BESSY KOTHARI DATE OF SERVICE: 02/24/19 SEX: M MEDICAL RECORD: [id number] DATE OF : 60 LOCATION:[facility] AGE OF PATIENT: 58 ADMISSION DATE: 02/24/19 REFERRING PHYSICIAN: INTERPRETING PHYSICIAN: JOSE IRBY MD ECHOCARDIOGRAM REPORT ECHO CHARGES 4 ECHO COMPLETE Date: 02/24/19 CLINICAL DIAGNOSIS: CARDIOMYOPATHY H/O CAD/CABG/HTN ECHOCARDIOGRAPHIC MEASUREMENTS (adult normal given) AC root (d.<3.7cm) 3.3 cm LV Septum d (<1.2 cm> 1.4 cm Valve Excursion 2.0 cm LV Septum (systole) 1.7 cm Left Atria (s.<4.0cm> 3.7 cm LVPW d(<1.2cm) 1.2 cm RV (d.<2.3cm) 3.2 cm LVPW (sytole) 1.7 cm LV diastole(<5.6CM) 6.3 cm MV E-F(>70mm/sec) cm LV systole 4.2 cm LVOT Diameter 2.1 cm MV exc.(>10mm) cm Est.ejection fraction (50-75%) % DOPPLER: LVIT cm/sec A 28.0 cm/sec E 84.0 cm/sec LA cm/sec RVSP 28.2 mmHg LVOT 118 cm/sec AOP1/2T m/s Asc. Ao 148 cm/sec RVOT 54.0 cm/sec RA cm/sec PA 126 cm/sec AV Gradient Peak 8.8 mmHg AV Mean 5.0 mmHg AV Area 1.9 cm MV Gradient Peak 3.7 mmHg MV Mean 1.2 mmHg MV Area cm COMMENTS: OP - HC Brick And Tile Making Machine Operator: Jevon DONALD NESSA Early Education Teacher: 3 Dr. Whittaker TAPE# PACS Pericardial Effusion N DATE OF SERVICE: 02/24/2019 Adequate 2-D echo, color-flow and spectral Doppler, and M-mode. LVH is present. LV internal dimensions are normal. LV is mildly globally hypo with EF at lower limits of normal to mildly reduced at 45% to 50%. Aortic valve sclerosis without stenosis by Doppler interrogation. Left atrium is normal at 3.7 cm. Mitral valve shows no prolapse. Mild MR. Right-sided chambers are grossly normal. Trace TR. ECHOCARDIOGRAM REPORT [id number] BESSY KOTHARI TRANSINT:[id number] Voice Confirmation ID: [id number] DOCUMENT ID: [id number] JOSE IRBY MD at 0929 CC: [id number] DICTATION DATE: 02/27/19 1514 CHILI POWDER MIXER: 02/27/19 1555 DEP CLI 02/24/19 [place] [id number] [place] [id number]
== END | disposition home or self-care (01) ==
LOC: D.HCCARDIO 02-20 11:30
PROVIDERS: ATTEND Internal Medicine Interventional Cardiology
DX: I42.9 Cardiomyopathy, unspecified (principal)

== ENCOUNTER → 2020-09-12 09:29 | Outpatient (CLI) | payer MEDICARE, MEDICAID ==
[2018-10-24 08:43] VITALS: BMI 29.6
== END | disposition home or self-care (01) ==
LOC: D.HCCARDIO 09-05 10:00
PROVIDERS: ATTEND Internal Medicine Cardiovascular Disease
DX: I25.10 Atherosclerotic heart disease of native coronary artery without angina pectoris (principal)

== ENCOUNTER 2020-09-24 10:54 | Day surgery (SDC) | payer MEDICARE, MEDICAID ==
[~2020-09-24] VITALS: Ht 182.9 cm; Wt 97.6 kg
--- NOTE | ~2020-09-24 | OP ---
PATIENT NAME: BESSY KOTHARI MEDICAL RECORD: [id number] :60 LOCATION:D[facility] ADMISSION DATE: SURGEON: JOSE IRBY MD DATE OF OPERATION: 09/24/2020 PROCEDURE: Left heart catheterization, PTCA, selective coronary angiography, right femoral artery approach. CATHETERS: A 5-Turkish sheath, 5/4 left and right Emanuel, 5/4 pig. The procedure was well tolerated. PTCA stenting to the left main and circumflex. FINDINGS: Left ventriculography in 30-degree CAMERON view: Normal wall motion and normal systolic function. CORONARY ANATOMY: Left main: The left main fills for a short period of time, this is filled via competitive flow. Left main tapers to 90% stenosis. LAD: LAD appears for a short period of time and seen filling competitive flow. Circumflex: Has one OM that has an ostial stenosis of 90%. This was a grafted vessel. The PDA dropped coming off the circumflex. The area of the circumflex has about 80% stenosis. Right coronary artery: Right coronary artery is rudimentary. BYPASS GRAFTS: [place] to LAD and diagonals were widely patent throughout its course. Saphenous vein graft to the OM is widely patent. PLAN: Intervention of the 90% left main, 80% circumflex momentarily. DESCRIPTION: A 5-Turkish sheath was exchanged for a 6-Turkish sheath. A XB LAD guiding catheter provided excellent guide catheter support followed by 300 cm BMW wire was placed across the left main lesion and the circumflex lesion. Pre-deployment balloon was a 3.0 x 15 mm [place]. The distal 80% stenosis in the circumflex covered with a 3.0 x 18 mm [place] drug-eluting stent. The left main was covered with again 3.0 x 18 [place] drug-eluting stent, both stents up to 14 atmospheres for 45 seconds. Final angiography shows excellent resolution of 90% left main stenosis, excellent resolution of 80% circumflex stenosis. SITA flow was 3 through the procedure. Heparin and Integrilin were used during the case. Plavix loaded in lab. Sheath closed with ExoSeal device. TRANSINT:[id number] Voice Confirmation ID: [id number] DOCUMENT ID: [id number] JOSE IRBY MD CC: [id number] DICTATION DATE: 09/24/20 1546 QUEEN PRODUCER: 09/25/20 0023 DEP SDC 09/24/20 [facility] [address] [place] [address]
--- NOTE | ~2020-09-24 | HEMODYNAMI ---
PATIENT:BESSY KOTHARI MEDICAL RECORD: [id number] : 60 LOCATION:D.CAT ADMISSION DATE: 09/24/20 Generatedon:114:27 Patient name: BESSY KOTHARI Patient #: [id number] SSN: [id number] : 1960 Date of study: 09/24/2020 Page: Of Hemodynamic Procedure Report Patient Data Patient Demographics Procedure consent was obtained First Name: BESSY Gender: Male Last Name: TAYE : 1960 [facility] Initial: TRACIE Age: 60 year(s) Patient #: [id number] Race: SSN: [id number] Additional ID: [id number] Contact details Address: [address] [place] [address] State: [place] City: [place] Zip code: [address] Past Medical History Performed procedures and imaging results Date Procedure Procedure Results Comments 09/12/2020 Stress testing Positive->Intermediate with SPECT MPI risk History of disease Date Diagnosis Comments CAD Allergies Allergen Reaction Date Comments Reported Other allergy 09/27/2014 advil NSAIDs 10/20/2018 Other allergy 09/24/2020 NSAIDS Admission Admission Data Admission Date: 09/24/2020 Admission Time: 10:54 Arrival Date: 09/24/2020 Arrival Time: 0:00 Admit Source: Other Insurance Payor: Medicare [facility] #: [id number] Height (in.): 72 BSA: 2.18 (m2) Height (cm.): 182.88 BMI: 28.75 (kg/m2) Weight (lbs.): 212 Weight (kg.): 96.16 Lab Results Lab Result Date: 09/24/2020 Lab Result Time: 0:00 Biochemistry Name Units Result Min Max BUN mg/dl 11 --(-*--)-- 7 18 Creatinine mg/dl 1.2 --(---*)-- 0.6 1.3 eGFR ml/min 66 *-(----)-- 90 120 NONAFRICAN CBC Name Units Result Min Max Hematocrit % 50.6 --(--*-)-- 42 54 Hemoglobin g/dl 17.9 --(----)*- 13.5 17.5 Procedure Procedure Types Cath Procedure Diagnostic Procedure [facility] w/Coronaries w/Grafts Sedation Charges Moderate Sedation 40-54 minutes PCI Procedure Coronary Stent Coronary Stent Initial x2 Hemochron ACT Test Procedure Description Procedure Date Procedure Date: 09/24/2020 Procedure Start Time: 13:48 Procedure End Time: 14:26 Procedure Staff Name Function Quintin Bagley MD Performing Physician Huma Blount RN Nurse Rylee Mari RT Scrub Isaura Pandya RT Monitor Procedure Data Cath Procedure Fluoroscopy Diagnostic fluoroscopy Total fluoroscopy Time: 6.9 time: 6.9 min min Diagnostic fluoroscopy Total fluoroscopy dose: dose: 1564 mGy 1564 mGy Contrast Material Contrast Material Type Amount (ml) Isovue 370 172 Entry Location Entry Primary Successful Side Size Upsize Upsize Entry Closure Succes sful Closure Location (Fr) 1 (Fr) 2 (Fr) Remarks Device Remarks Femoral Right 5 Fr 6 Fr Exoseal artery Short Estimated blood loss: 10 ml Diagnostic catheters Device Type Used For End Catheter Placement MULTIPACK JL 4.0 5Fr Procedure catheter MULTIPACK 3DRC 5Fr Procedure catheter MULTIPACK Pigtail 5 Fr Procedure catheter Procedure Complications No complications Procedure Medications Medication Administration Route Dosage Oxygen etCO2 Nasal cannula 2 l/min Lidocaine 2% added to field 20 Heparin Flush Bag added to field 2 bags (1000units/500ml NS) 0.9% NaCl I.V. 100 ml/hr Versed I.V. 1 mg Fentanyl I.V. 50 mcg Versed I.V. 1 mg Fentanyl I.V. 50 mcg Heparin Bolus I.V. 5000 units Versed I.V. 1 mg Plavix P.O. 75 mg Hemodynamics Rest BSA: 2.18 (m2) HGB: 17.9 (g/dl) O2 Consumption: Estimated: 250.08 (ml/min) O2 Co nsumption indexed: Estimated:114.72 (ml/min/m) Heart Rate: 63 (bpm) Pressure Samples Time Site Value (mmHg) Purpose Heart Use Rate(bpm) 13:56 LV 81/6,6 Snapshot 63 Gradients Valve Time Site Site Mean SEP/DFP Peak To Heart Use 1 2 (mmHg) (sec/min) Peak Rate (mmHg) (bpm) Aortic 13:56 LV AO 61 Snapshots Pre Cath Intra NCS Post Cath Vital Signs Time Heart Resp SPO2 etCO2 NIBP (mmHg) Rhythm Pain Sedation Rate (ipm) (%) (mmHg) Status Level (bpm) 13:12:23 62 17 98 0 141/86(120) NSR 0 (11) 10(A) , No pain 13:16:35 59 15 98 35.5 130/77(106) NSR 0 (11) 10(A) , No pain 13:20:49 58 12 98 37 128/77(110) NSR 0 (11) 10(A) , No pain 13:25:05 58 11 98 36.2 124/72(85) NSR 0 (11) 10(A) , No pain 13:29:16 57 12 98 35.5 118/70(83) NSR 0 (11) 10(A) , No pain 13:33:30 58 11 98 36.2 124/63(90) NSR 0 (11) 10(A) , No pain 13:38:01 57 12 99 35.5 93/40(74) NSR 0 (11) 10(A) , No pain 13:43:06 58 11 98 37.7 116/66(84) NSR 0 (11) 9(A) , No pain 13:47:20 58 11 98 38.5 122/66(93) NSR 0 (11) 9(A) , No pain 13:51:30 61 11 98 9.8 133/83(101) NSR 0 (11) 9(A) , No pain 13:55:42 61 11 98 36.9 124/75(92) NSR 0 (11) 9(A) , No pain 13:59:56 60 10 98 21.1 135/73(99) NSR 0 (11) 9(A) , No pain 14:04:12 60 11 98 28.7 129/69(95) NSR 0 (11) 10(A) , No pain 14:08:28 59 11 98 35.5 114/63(86) NSR 0 (11) 10(A) , No pain 14:12:44 60 12 98 36.2 113/62(85) NSR 0 (11) 10(A) , No pain 14:16:56 60 12 98 37 118/70(80) NSR 0 (11) 10(A) , No pain 14:21:06 59 12 98 33.9 119/80(95) NSR 0 (11) 10(A) , No pain 14:25:18 61 12 98 36.2 126/77(94) NSR 0 (11) 10(A) , No pain Medications Time Medication Route Dose Verified Delivered Reason Notes Effectiveness by by 13:13:01 Oxygen etCO2 2 Quintin Buffie used for Nasal l/min St Sanya Blount RN procedure cannula 13:13:10 Lidocaine 2% added 20ml Quintin Buffie for local to vial St Sanya Blount RN anesthetic field 13:13:17 Heparin Flush added 2 Quintin Buffie used for Bag to bags St Sanya Blount RN procedure (1000units/500ml field CISNEROS NS) 13:13:25 0.9% NaCl I.V. 100 Quintin Buffie Per physician ml/hr St Sanya Blount RN, MD 13:37:44 Versed I.V. 1 mg Quintin Buffie for sedation St Sanya Blount RN, MD 13:37:50 Fentanyl I.V. 50 Quintin Buffie for sedation mcg [address] Sanya Blount RN, MD 13:50:33 Versed I.V. 1 mg Quintin Buffie for sedation St Sanya Blount RN, MD 13:50:37 Fentanyl I.V. 50 Quintin Buffie for sedation mcg [address] Sanya Blount RN, MD 14:02:05 Heparin Bolus I.V. 5000 Quintin Buffie for verif ied units St Sanya Blount RN anticoagulation with dr MD nichols 14:05:56 Versed I.V. 1 mg Quintin Buffie for sedation St Sanya Blount RN, MD 14:21:09 Plavix P.O. 75 mg Quintin Buffie for St Sanya Blount RN antiplatelet therapy Procedure Log Time Note 12:58:01 Informed consent obtained and on chart 12:58:18 Insurance Payor : Medicare 12:58:20 Arrival Date: 09/24/2020 12:00:00 AM 12:58:34 Admit Source: Other 12:58:41 Patient Height : 72 inches 12:58:44 Patient Weight : 212 lbs 12:59:03 Diagnostic Cath Status : Elective 12:59:17 ACC Patient presents with Stable Angina CCS Anginal Class 2--Slight limitation of ordinary activity. 12:59:20 Procedure Status Elective Heart Cath (OP). 12:59:22 Time tracking: Regular hours (M-F 7:00 - 5:00) 12:59:29 Plan of Care:Hemodynamics will remain stable., Cardiac rhythm will remain stable., Comfort level will be maintained., Respiratory function will remain adequate., Patient/ family verbilizes understanding of procedure., Procedure tolerated without complication., Recovers from procedure without complications.. 12:59:39 H&P Date Dictated: 08/29/2020 Within 30 days and on chart.. 12:59:40 Pre-procedure instructions explained to patient. 12:59:41 Pre-op teaching completed and patient verbalized understanding. 12:59:42 Family unavailable. 12:59:44 Patient NPO since Midnight. 13:00:09 Patient allergic to Other allergyNSAIDS 13:01:11 Rylee Mari RT(R) sent for patient. Start room use. 13:02:20 Lab results completed and on chart. 13:02:46 Lab Result : BUN 11 mg/dl 13:02:46 Lab Result : Creatinine 1.2 mg/dl 13:02:46 Lab Result : Hemoglobin 17.9 g/dl 13:02:46 Lab Result : eGFR NONAFRICAN 66 ml/min 13:02:46 Lab Result : Hematocrit 50.6 % 13:03:06 Stress Test: yes; abnormal ANTERIOR AND APICAL 13:03:08 Alarms reviewed by R. N. 13:03:08 Sharps counted by scrub and verified by R.N. 13:04:03 Patient received from Pre/Post Procedure Room to CCL 1 Alert and oriented. Tansferred to table in Supine position. 13:04:04 Warm blankets applied, and carla hugger turned on for patient comfort. 13:04:05 Correct patient and procedure confirmed by team. 13:04:05 ECG and BP/O2 sat monitors applied to patient. 13:04:10 Is the patient allergic to Iodine/contrast media? No. 13:04:11 Was the patient premedicated? Yes 13:07:12 Vital chart was started 13:13:01 Oxygen 2 l/min etCO2 Nasal cannula was administered by Huma Blount RN; used for procedure; Verbal order read back and verified. 13:13:10 Lidocaine 2% 20ml vial added to field was administered by Huma Blount RN; for local anesthetic; Verbal order read back and verified. 13:13:17 Heparin Flush Bag (1000units/500ml NS) 2 bags added to field was administered by Huma Blount RN; used for procedure; Verbal order read back and verified. 13:13:25 0.9% NaCl 100 ml/hr I.V. was administered by Huma Blount RN; Per physician; Verbal order read back and verified. 13:17:43 Is patient on blood thinner?Yes 13:17:48 ACC The patient was administered the following blood thiners within the last 24 hours: ACCPlavix 13:17:53 Patient diabetic? No. 13:17:55 ----Pre-sedation anethsthesia assessment.---- 13:17:57 Previous problem with sedation/anesthesia? No ? 13:17:58 Snore? Yes 13:18:07 Sleep apnea? Unknown 13:18:09 Deviated septum? No 13:18:10 Opens mouth fully? Yes 13:18:10 Sticks out tongue? Yes 13:18:14 Airway obstruction? Yes ? 13:18:18 Dentures? No ? 13:18:22 Patient pain scale 0/10 ?. 13:18:28 IV patent on arrival in left antecubital with 0.9% NaCl at [facility]. 13:18:34 Right groin area was prepped with chlora-prep and draped in sterile fashion 13:18:37 Use device set Femoral Dx 13:18:39 ACIST Syringe (99224) opened to sterile field. 13:18:39 Bag Decanter (2002) opened to sterile field. 13:18:41 Medline Cath Pack ([id number]) opened to sterile field. 13:18:42 ACIST Hand Control (37955) opened to sterile field. 13:18:43 ACIST Manifold (11103) opened to sterile field. 13:18:45 SHEATH 5FR Fork ([id number]) opened to sterile field. 13:18:45 EMERALD Guide Wire (535-482) opened to sterile field. 13:18:47 DIAGNOSTIC Multipack 5Fr catheter set (AL2223) opened to sterile field. 13:18:49 Tegaderm 4 x 4 (2726W) opened to sterile field. 13:36:19 --------ALL STOP TIME OUT------ 13:36:21 Final Timeout: patient, procedure, and site verified with staff and physician. All members of the team are in agreement. 13:36:22 Right groin site verified by team. 13:36:25 Fire Safety Assessment: A--An alcohol-based skin anteseptic being used preoperatively., C--Open oxygen or nitrous oxide is being used., D--An ESU, laser, or fiber-optic light is being used. 13:36:29 Physical assessment completed. ASA score P 2 - A patient with mild systemic disease as per Quintin Bagley MD. 13:36:31 2) 60-89 Mildly reduced kidney function, and other findings (as for stage 1) point to kidney disease. 13:36:34 Maximum allowable contrast dose (3.7 X eGFR X 0.75)183 ml. 13:36:37 Sedation plan: IV Moderate Sedation Medication:Versed, Fentanyl 13:36:58 Procedure type changed to Cath procedure, Diagnostic procedure, LHC, LHC w/Coronaries w/Grafts, Sedation Charges, Moderate Sedation 40-54 minutes, PCI procedure, Coronary Stent, Coronary Stent Initial x2, Hemochron ACT Test 13:37:44 Versed 1 mg I.V. was administered by Huma Blount RN; for sedation; Verbal order read back and verified. 13:37:50 Fentanyl 50 mcg I.V. was administered by Huma Blount RN; for sedation; Verbal order read back and verified. 13:48:31 Procedure started. 13:48:32 Full Disclosure recording started 13:48:34 Local anesthetic to right femoral artery with Lidocaine 2% by Quintin Bagley MD.INITIAL ACCESS ONLY 13:49:43 A 5 Fr sheath was inserted into the Right Femoral artery 13:49:49 Zero performed for pressure channel P1 13:50:01 A MULTIPACK JL 4.0 5Fr catheter was advanced over the wire and used for Procedure. 13:50:33 Versed 1 mg I.V. was administered by Huma Blount RN; for sedation; Verbal order read back and verified. 13:50:37 Fentanyl 50 mcg I.V. was administered by Huma Blount RN; for sedation; Verbal order read back and verified. 13:50:46 LCA angiography performed. 13:50:48 Injector settings: Ml/sec: 3, Volume: 6, 13:51:54 Catheter removed. 13:52:02 A MULTIPACK 3DRC 5Fr catheter was advanced over the wire and used for Procedure. 13:52:57 RCA angiography performed. 13:53:00 Injector settings: Ml/sec: 3, Volume: 6, 13:53:17 SVG to OM angiography performed. 13:54:23 MUHAMMAD to LAD angiography performed. 13:55:00 Catheter removed. 13:55:08 A MULTIPACK Pigtail 5 Fr catheter was advanced over the wire and used for Procedure. 13:55:52 LV gram done using CAMERON 13:55:55 Injector settings: Ml/sec: 5, Volume: 15, 13:56:04 LV hemodynamics recorded. 13:56:17 EF : 55 % 13:56:26 Catheter removed. 13:58:12 Proceeding to intervention. 13:58:17 Use device set SUREKHA PCI 13:58:19 INFLATOR Merit BasixCompak ([id number]) opened to sterile field. 13:58:20 SHEATH 6FR Fork (OPT326) opened to sterile field. 13:58:49 Sheath upsized to a 6 Fr Short. 14:00:39 GUIDE 6FR XBLAD 3.5 catheter ([id number]) opened to sterile field. 14:01:18 BMW 300cm Bolton 2 J wire ([id number]) opened to sterile field. 14:01:35 6 Fr XBLAD 3.5 guide catheter was inserted over the wire 14:02:05 Heparin Bolus 5000 units I.V. was administered by Huma Bloutn RN; for anticoagulation; verified with dr nichols Verbal order read back and verified. 14:02:08 Pre PCI Site: [place] Circ has 80% stenosis. 14:02:16 Pre PCI Site: [place] LMCA has 90% stenosis. 14:03:24 BMW 300 wire advanced. 14:03:26 Wire advanced across lesion. 14:05:30 Inflate balloon Inflation number: 1 A EUPHORA 3.0 x 15 Balloon ([id number]) was prepped and advanced across the Mid CX , then inflated to 14 DEANNA for 0:19 (min:sec) . 14:05:49 Inflation number: 1 The EUPHORA 3.0 x 15 Balloon ([id number]) was reinflated across the Prox CX , to 14 DEANNA for 0:06 (min:sec) . 14:05:56 Versed 1 mg I.V. was administered by Huma Blount RN; for sedation; Verbal order read back and verified. 14:06:39 Inflation number: 2 The EUPHORA 3.0 x 15 Balloon ([id number]) was reinflated across the Prox CX , to 14 DEANNA for 0:26 (min:sec) . 14:07:16 Balloon removed over the wire. 14:10:21 Place stent Inflation Number: 2 A CELESTE RX 3.0 x 18 stent ([id number]) was prepped and advanced across the Mid CX . The stent was deployed at 14 DEANNA for 0:21 (min:sec) . 14:10:48 Inflation number: 3 The stent balloon was then re-inflated across the Mid CX to 14 DEANNA for 0:00 (min:sec) . 14:11:29 Stent catheter was removed intact over wire. 14:13:23 Wire redirected to LMCA. 14:13:28 WHISPER 300cm guide wire ([id number]) opened to sterile field. 14:13:49 Place stent Inflation Number: 1 A CELESTE RX 3.0 x 18 stent ([id number]) was prepped and advanced across the LMCA . The stent was deployed at 16 DEANNA for 0:00 (min:sec) . 14:15:10 Inflation number: 4 The stent balloon was then re-inflated across the Mid CX to 14 DEANNA for 0:00 (min:sec) . 14:15:43 Inflation number: 3 The stent balloon was then re-inflated across the Prox CX to 10 DEANNA for 0:00 (min:sec) . 14:16:10 Wire removed. 14:16:14 Stent catheter was removed intact over wire. 14:16:14 Guide catheter removed. 14:16:23 EXOSEAL 6Fr (EX600) opened to sterile field. 14:16:39 Sheath removed intact; hemostasis achieved with Exoseal to the Right Femoral artery. 14:17:27 Fluoroscopy time 06.90 minutes. 14:17:31 Fluoroscopy dose: 1564 mGy 14:17:31 Flurop Dose total: 1564 14:17:38 Dose Area Product 64483 mGy/cm. 14:17:40 Procedure ended.(Physican Out) 14:17:49 Contrast amount:Isovue 370 172ml. 14:17:53 Maximum allowable dose exceeded? No. 14:17:55 Sharps counted by scrub and verified by R.N. 14:17:59 Post-op/insertion site Right Femoral artery dressed using a 4 x 4 and Tegaderm. 14:18:04 Post right femoral artery:stable, clean and dry, unstable 14:18:05 Post Procedure Pulses reassessed and unchanged 14:18:08 Post procedure: right dorsailis pedis pulse 2+ Normal; easily identifiable; not easily obliterated. 14:18:14 Post-procedure physical assessment completed. ASA score P 2 - A patient with mild systemic disease as per Quintin Bagley MD. 14:18:17 Post procedure rhythm: unchanged. 14:18:26 Estimated blood loss: 10 ml 14:18:43 Post procedure instruction explained to patient.Patient verbalizes understanding. 14:18:43 Patient needs reinforcement of post procedure teaching. 14:21:09 Plavix 75 mg P.O. was administered by Huma Blount RN; for antiplatelet therapy; Verbal order read back and verified. 14:21:20 ACT drawn and resulted at 225 seconds. (normal therapeutic range 180-240 seconds). 14:23:27 Procedure and supply charges have been captured, reviewed, submitted and are correct. 14:23:34 Procedure Complication : No complications 14:24:29 [facility] Findings: MVD- PCI performed (see procedure note) 14:24:30 Operative report dictated upon procedure completion. 14:24:31 See physician's report for complete and final results. 14:24:38 Report given to Pre/Post Procedure Room. 14:26:39 Patient transfered to Pre/Post Procedure Room with Stretcher. 14:26:42 Procedure ended. 14:26:42 Full Disclosure recording stopped 14:26:50 ACC-PCI Only Patient was given prescriptions, or instructed by Quintin Bagley MD to start/continue the following medications upon discharge: Plavix 14:26:52 End room use (Document Last) 14:27:07 End room use (Document Last) 14:27:44 Vital chart was stopped Intervention Summary Intervention Notes Time ActionType Lesion and Equipment Used Action# Pressure Duration Attributes 14:05:30 Inflate Mid CX EUPHORA 3.0 x 1 14 00:19 balloon 15 Balloon ([id number]) 14:05:49 Reinflate Prox CX EUPHORA 3.0 x 1 14 00:07 balloon 15 Balloon ([id number]) 14:06:39 Reinflate Prox CX EUPHORA 3.0 x 2 14 00:26 balloon 15 Balloon ([id number]) 14:10:21 Place stent Mid CX CELESTE RX 3.0 x 2 14 00:21 18 stent ([id number]) 14:10:48 Reinflate Mid CX CELESTE RX 3.0 x 3 14 00:00 stent 18 stent balloon ([id number]) 14:13:49 Place stent LMCA CELESTE RX 3.0 x 1 16 00:00 18 stent ([id number]) 14:15:10 Reinflate Mid CX CELESTE RX 3.0 x 4 14 00:00 stent 18 stent balloon ([id number]) 14:15:43 Reinflate Prox CX CELESTE RX 3.0 x 3 10 00:00 stent 18 stent balloon ([id number]) Device Usage Item Name Manufacture Quantity Catalog Hospital Part [facility] Lot# / Number Charge Number Stock Stock Serial# Code ACIST Syringe Acist 1 43601 465227 212946 131853 20 (25910) Medical Systems Inc Bag Decanter Microtek 1 2001S 467747 13173 546392 5 (2001S) Medical Inc. Medline Cath Medline 1 [id number] 791848 56940 528810 5 Pack ([id number]) ACIST Hand Acist 1 64357 762684 642407 917597 5 Control Medical (04639) Systems Inc ACIST Manifold Acist 1 37600 344872 416692 085460 5 (77184) Medical Systems Inc SHEATH 5FR Terumo 1 FAH826 019492 329973 100003 5 Fork (PEL655) EMERALD Guide Cardinal 1 502-455 496568 259791 678211 5 Wire (502-455) Health DIAGNOSTIC Cardinal 1 IF8563 520057 50908 533157 30 Multipack 5Fr Health catheter set (ED3006) Tegaderm 4 x 4 3M 1 1626W 677218 098588 721487 5 (1626W) MULTIPACK JL Cardinal 1 238358 5 4.0 5Fr Health catheter MULTIPACK 3DRC Cardinal 1 842354 5 5Fr catheter Health MULTIPACK Cardinal 1 195202 5 Pigtail 5 Fr Health catheter INFLATOR Merit Merit 1 PG3323 993209 932925 669877 15 BasixCompak Medical (XH9377) SHEATH 6FR Terumo 1 KST023 175484 156144 434350 40 Fork (UVZ488) GUIDE 6FR Cardinal 1 [id number] 080767 747463 027264 10 XBLAD 3.5 Health catheter (21429422) BMW 300cm Shields 1 [id number] 326051 563925 841528 5 Bolton 2 J Vascular wire ([id number]) EUPHORA 3.0 x Medtronic 1 [id number] 773347 681330 352932 5 [id number] 15 Balloon ([id number]) CELESTE RX 3.0 x Medtronic 2 [id number] 023358 6227825 417040 5 [id number] 18 stent [id number] ([id number]) WHISPER 300cm Shields 1 [id number] 489295 062669 686937 5 guide wire Vascular ([id number]) EXOSEAL 6Fr Cardinal 1 EX600 969128 121516 586027 10 (EX600) Health Signature Audit Maud Stage Time Signature Unsigned Intra-Procedure 09/24/2020 Isaura Pandya 2:27:07 PM RT(R) Intra-Procedure 09/24/2020 Huma Blount RN 2:27:26 PM Intra-Procedure 09/24/2020 Quintin Paniagua 2:27:41 PM Sanya CISNEROS [facility] [address] [place] [address]
[2020-09-24] MEDS ORDERED: LISINOPRIL10 MG PO (11:26)
[2020-09-24] MEDS ORDERED: HCTZ25 MG PO (11:27)
[2020-09-24 11:34] VITALS: BP 156/89; Ht 182.9 cm; Wt 97.6 kg
[2020-09-24 11:39] LABS: BASOPHILS 0.5 % (0-2); HEMATOCRIT 50.6 % (42.0-54.0); HEMOGLOBIN 17.9 g/dL (13.5-17.5); IMMATURE GRANULOCYTES 0.3 % (0-5); LYMPHOCYTE ABS# 2.38 10x3/uL (1.32-3.57); LYMPHOCYTES 31.4 % (15-50); MCH 31.6 pg (26.0-34.0); MCHC 35.4 g/dL (31.0-37.0); MCV 89.4 fL (80.0-100.0); MEAN PLATELET VOLUME 9.9 fL (7.4-10.4); MONOCYTES 10.9 % (2-11); NEUTROPHIL ABS# 4.08 10x3/uL (1.78-5.38); NEUTROPHILS 53.9 % (40-80); PLATELET COUNT 218 10x3/uL (130-400); RBC 5.66 10x6/uL (4.20-6.10); RDW 13.4 % (11.5-14.5); WBC 7.6 10x3/uL (4.8-10.8)
[2020-09-24 12:04] LABS: ANION GAP 13.6 mmol/L (8-16); CALCIUM 8.5 mg/dL (8.5-10.1); CARBON DIOXIDE 25.9 mmol/L (21.0-32.0); CHOL - HDL RATIO 4.9 ratio (2.3-4.9); CREATININE - SERUM 1.2 mg/dL (0.6-1.3); POTASSIUM - SERUM 3.5 mmol/L (3.5-5.1)
--- NOTE | 2020-09-24 14:40 | NUR ---
PT RECEIVED BACK TO ROOM VIA STRETCHER FROM WASTE BALER FOR RECOVERY. PT DROWSY BUT VERBALLY AROUSABLE. PT DENIES PAIN OR DISCOMFORT AT THIS TIME. IV PATENT INFUSING VIA ORDERS. PT PLACED ON INSURANCE SPECIAL AGENT AND O2 VIA NC AT 2L, SEE VS SHEET. R GROIN W 6FR EXOCELE, SITE SOFT NO S/S HEMTOMA OR BLEEDING. LG TEGADERM DRESSING CDI. LEG PINK AND WARM, PEDAL PULSES PALPABLE. PT INSTRUCTED TO KEEP HEAD ON PILLOW AND LEG STRAIGHT. DR IRBY WAS IN ROOM PRIOR TO PT ARRIVAL AND SPOKE WITH DAUGHTER REGARDING PROCEDURE RESULTS AND PLAN OF CARE. CALL LIGHT IN REACH
--- NOTE | 2020-09-24 15:00 | NUR ---
PT RESTING COMFORTABLY W EYES CLOSED. VSS AT PRESENT. R GROIN SOFT, DRESSING CDI NO S/S HEMATOMA OR BLEEDING NOTED. CALL LIGHT REMAINS IN REACH
--- NOTE | 2020-09-24 15:45 | NUR ---
R GROIN SOFT, DRESSING CDI NO S/S HEMATOMA OR BLEEDING. CALL LIGHT IN REACH. PT RESTING COMFORTABLY, DENIES PAIN OR NEEDS AT THIS TIME
--- NOTE | 2020-09-24 16:15 | NUR ---
LAB DRAW COMPLETED PER ORDER. R GROIN REMAINS SOFT, NO S/S HEMATOMA OR BLEEDING NOTED. VSS AT PRESENT. CALL LIGHT IN REACH
--- NOTE | 2020-09-24 16:45 | NUR ---
R GROIN SOFT, NO S/S HEMATOMA OR BLEEDING NOTED. VSS AT PRESENT. CALL LIGHT IN REACH
--- NOTE | 2020-09-24 17:12 | NUR ---
R GROIN SOFT, DRESSING CDI NO S/S HEMATOMA OR BLEEDING NOTED. HOB ELEVATED, SANDWICH AND DRINK SERVED. VSS AT PRESENT. CALL LIGHT IN REACH. O2 REMOVED.
[2020-09-24 17:34] LABS: PLT FUNCT.(P2Y12) PLAVIX 190 PRU (194-418)
--- NOTE | 2020-09-24 17:45 | NUR ---
DISCHARGE INSTRUCTIONS REVIEWED W PT, HE VERBALIZED UNDERSTANDING. IV REMOVED W CATH INTACT. PT TOLERATING PO FLUIDS AND SANDWICH W/O PROBLEMS. VSS. R GROIN SOFT, DRESSING CDI NO S/S HEMATOMA OR BLEEDING NOTED. MONITORS REMOVED AND PT UP TO DRESS FOR DISCHARGE
--- NOTE | 2020-09-24 18:03 | NUR ---
PT AMBULATED TO BR, VOIDING W/O DIFFICULITY. PT THEN DISCHARGED VIA WC TO DAUGHTER WAITING IN PRIVATE VEHICLE. PT HAD ALL BELONGINGS AND DISCHARGE PAPERWORK.
== END 2020-09-24 18:00 | disposition home or self-care (01) ==
LOC: D.CATH 10:54
PROVIDERS: Thoracic Surgery (Cardiothoracic Vascular Surgery); ATTEND Internal Medicine Interventional Cardiology
DX: I25.119 Atherosclerotic heart disease of native coronary artery with unspecified angina pectoris (principal); I10 Essential (primary) hypertension; E78.5 Hyperlipidemia, unspecified; R06.00 Dyspnea, unspecified
CPT/HCPCS: 93459; C9600 ×2

== ENCOUNTER 2020-11-17 22:21 | Inpatient (IN) | payer MEDICARE, MEDICAID ==
[~2020-11-17] VITALS: Ht 182.9 cm; Wt 83.9 kg
--- NOTE | ~2020-11-17 | HEMODYNAMI ---
PATIENT:BESSY KOTHARI MEDICAL RECORD: [id number] : 60 [facility] ADMISSION DATE: 11/18/20 Generatedon:110:03 Patient name: BESSY KOTHARI Patient #: [id number] SSN: [id number] : 1960 Date of study: 11/18/2020 Page: Of Hemodynamic Procedure Report Patient Data Patient Demographics Procedure consent was obtained First Name: BESSY Gender: Male Last Name: TAYE : 1960 [facility] Initial: TRACIE Age: 60 year(s) Patient #: [id number] Race: SSN: [id number] Additional ID: [id number] Contact details [address]: [address] [place] [address] State: [place] City: [place] Zip code: [address] Past Medical History History of disease Date Diagnosis Comments CAD Allergies Allergen Reaction Date Comments Reported Other allergy 09/27/2014 advil NSAIDs 10/20/2018 Other allergy 09/24/2020 NSAIDS Admission Admission Data Admission Date: 11/18/2020 Admission Time: 0:30 Arrival Date: 11/18/2020 Arrival Time: 0:30 Admit Source: Emergency Insurance Payor: Medicare department [facility] #: [id number] Room #: D2136 Height (in.): 71.65 BSA: 2.05 (m2) Height (cm.): 182 BMI: 25.36 (kg/m2) Weight (lbs.): 185.19 Weight (kg.): 84 Lab Results Lab Result Date: 11/18/2020 Lab Result Time: 0:00 Biochemistry Name Units Result Min Max BUN mg/dl 12 --(-*--)-- 7 18 Creatinine mg/dl 1.1 --(--*-)-- 0.6 1.3 eGFR ml/min 72 *-(----)-- 90 120 NONAFRICAN CBC Name Units Result Min Max Hemoglobin g/dl 17.8 --(----)*- 13.5 17.5 Procedure Procedure Types Cath Procedure Diagnostic Procedure LHC LHC w/Coronaries w/Grafts Sedation Charges Moderate Sedation 10-24 minutes Procedure Description Procedure Date Procedure Date: 11/18/2020 Procedure Start Time: 9:48 Procedure End Time: 10:02 Procedure Staff Name Function Quintin Bagley MD Performing Physician Isaura Pandya RT Monitor Rylee Mari RT Scrub Christine Leonardo RN Nurse Procedure Data Cath Procedure Fluoroscopy Diagnostic fluoroscopy Total fluoroscopy Time: 1.9 time: 1.9 min min Diagnostic fluoroscopy Total fluoroscopy dose: 810 dose: 810 mGy mGy Contrast Material Contrast Material Type Amount (ml) Isovue 300 87 Entry Location Entry Primary Successful Side Size Upsize Upsize Entry Closure Succes sful Closure Location (Fr) 1 (Fr) 2 (Fr) Remarks Device Remarks Femoral Right 5 Fr Exoseal artery Estimated blood loss: 5 ml Diagnostic catheters Device Type Used For End Catheter Placement MULTIPACK JL 4.0 5Fr Left Coronary catheter Angiography MULTIPACK 3DRC 5Fr Right Coronary catheter Angiography MULTIPACK Pigtail 5 Fr LV Angiography catheter Procedure Complications No complications Procedure Medications Medication Administration Route Dosage Oxygen etCO2 Nasal cannula 2 l/min Heparin Flush Bag added to field 2 bags (1000units/500ml NS) Lidocaine 2% added to field 20 0.9% NaCl I.V. 100 ml/hr Fentanyl I.V. 50 mcg Versed I.V. 1 mg Fentanyl I.V. 50 mcg Versed I.V. 1 mg Hemodynamics Rest BSA: 2.05 (m2) HGB: 17.8 (g/dl) O2 Consumption: Estimated: 231.82 (ml/min) O2 Co nsumption indexed: Estimated:113.08 (ml/min/m) Heart Rate: 58 (bpm) Pressure Samples Time Site Value (mmHg) Purpose Heart Use Rate(bpm) 9:56 LV 95/10,11 Snapshot 58 Gradients Valve Time Site Site Mean SEP/DFP Peak To Heart Use 1 2 (mmHg) (sec/min) Peak Rate (mmHg) (bpm) Aortic 9:57 LV AO 58 Snapshots Pre Cath Intra NCS Post Cath Vital Signs Time Heart Resp SPO2 NIBP (mmHg) Rhythm Pain Sedation Rate (ipm) (%) Status Level (bpm) 9:15:24 57 16 100 144/88(115) NSR 0 (11) 10(A) , No pain 9:19:32 59 17 100 136/87(109) NSR 0 (11) 10(A) , No pain 9:23:34 60 19 99 134/91(110) NSR 0 (11) 10(A) , No pain 9:27:38 59 14 99 131/86(104) NSR 0 (11) 10(A) , No pain 9:31:41 55 19 100 133/81(112) NSR 0 (11) 10(A) , No pain 9:35:47 58 16 98 123/77(93) NSR 0 (11) 10(A) , No pain 9:39:49 58 11 98 128/79(93) NSR 0 (11) 10(A) , No pain 9:43:53 58 12 98 127/75(101) NSR 0 (11) 10(A) , No pain 9:47:54 57 23 98 125/78(92) NSR 0 (11) 9(A) , No pain 9:51:56 58 22 98 122/78(92) NSR 0 (11) 9(A) , No pain 9:55:58 60 16 98 126/75(101) NSR 0 (11) 9(A) , No pain 10:00:01 59 11 98 127/73(91) NSR 0 (11) 9(A) , No pain Medications Time Medication Route Dose Verified Delivered Reason Notes Effe ctiveness by by 9:11:16 Oxygen etCO2 2 Christine Christine for low 02 Nasal l/min Malissa Leonardo sats cannula RN RN 9:11:25 Heparin Flush added 2 Christine Christine used for Bag to bags Malissa Leonardo procedure (1000units/500ml field RN RN NS) 9:11:33 Lidocaine 2% added 20ml Christine Quintin for local to vial St Sanya Leonardo anesthetic field FLACA CISNEROS 9:11:42 0.9% NaCl I.V. 100 Christine Christine Per ml/hr Malissa Leonardo, physician RN RN 9:48:57 Fentanyl I.V. 50 Christine Christine for mcg Malissa Leonardo, sedation RN RN 9:49:02 Versed I.V. 1 mg Christine Christine for Malissa Leonardo, sedation RN RN 9:52:44 Fentanyl I.V. 50 Christine King for mcg Malissa Leonardo sedation RN RN 9:52:47 Versed I.V. 1 mg Malissa Feliciano sedation RN clinical business manager Log Time Note 8:40:07 Informed consent obtained and on chart 8:43:09 Arrival Date: 11/18/2020 12:30:00 AM 8:43:31 Admit Source: Emergency department 8:43:33 Insurance Payor : Medicare 8:43:39 Patient Height : 71.65 inches 8:43:43 Patient Weight : 185.19 lbs 8:44:10 Lab Result : Creatinine 1.1 mg/dl 8:44:10 Lab Result : BUN 12 mg/dl 8:44:10 Lab Result : Hemoglobin 17.8 g/dl 8:44:10 Lab Result : eGFR NONAFRICAN 72 ml/min 8:44:17 Diagnostic Cath Status : Urgent 8:45:43 Procedure Status Urgent Heart Cath (IP). 8:50:02 Christine Leonardo RN sent for patient. Start room use. 8:50:05 Time tracking: Regular hours (M-F 7:00 - 5:00) 8:58:54 Plan of Care:Hemodynamics will remain stable., Cardiac rhythm will remain stable., Comfort level will be maintained., Respiratory function will remain adequate., Patient/ family verbilizes understanding of procedure., Procedure tolerated without complication., Recovers from procedure without complications.. 9:11:16 Oxygen 2 l/min etCO2 Nasal cannula was administered by Christine Leonardo RN; for low 02 sats; Verbal order read back and verified. 9:11:25 Heparin Flush Bag (1000units/500ml NS) 2 bags added to field was administered by Christine Leonardo RN; used for procedure; Verbal order read back and verified. 9:11:33 Lidocaine 2% 20ml vial added to field was administered by Quintin Bagley MD; for local anesthetic; Verbal order read back and verified. 9:11:42 0.9% NaCl 100 ml/hr I.V. was administered by Christine Leonardo RN; Per physician; Verbal order read back and verified. 9:14:17 Patient received from [facility] to [facility] 2 Alert and oriented. Tansferred to table in Supine position. 9:14:18 Warm blankets applied, and carla hugger turned on for patient comfort. 9:14:18 Correct patient and procedure confirmed by team. 9:14:18 ECG and BP/O2 sat monitors applied to patient. 9:14:19 Vital chart was started 9:14:21 Baseline sample Acquired. 9:14:27 Rhythm: sinus rhythm 9:14:28 Full Disclosure recording started 9:14:45 H&P Date Dictated: 11/18/2020 Within 30 days and on chart., ER History on chart.. 9:14:47 Pre-procedure instructions explained to patient. 9:14:49 Pre-op teaching completed and patient verbalized understanding. 9:15:00 Family unavailable. 9:15:01 Patient NPO since Midnight. 9:15:06 Is the patient allergic to Iodine/contrast media? No. 9:15:11 Was the patient premedicated? Yes 9:15:12 Is patient on blood thinner?Yes 9:15:14 ACC The patient was administered the following blood thiners within the last 24 hours: ACCPlavix 9:15:18 Patient diabetic? No. 9:15:20 Previous problem with sedation/anesthesia? No ? 9:15:21 Snore? Yes 9:15:22 Sleep apnea? Yes 9:15:23 Deviated septum? No 9:15:24 Opens mouth fully? Yes 9:15:25 Sticks out tongue? Yes 9:15:28 Airway obstruction? Yes COPD 9:15:31 Dentures? No ? 9:15:34 Pre procedure: right dorsailis pedis pulse 2+ Normal; easily identifiable; not easily obliterated 9:15:37 Pre procedure: left dorsailis pedis pulse 2+ Normal; easily identifiable; not easily obliterated 9:15:40 Patient pain scale 0/10 ?. 9:15:49 IV patent on arrival in left antecubital with 0.9% NaCl at O. 9:15:53 Lab results completed and on chart. 9:16:07 Stress Test: no; N/A ? 9:16:11 Right groin area was prepped with chlora-prep and draped in sterile fashion 9:16:11 Alarms reviewed by R. N. 9:16:12 Sharps counted by scrub and verified by R.N. 9:16:27 2) 60-89 Mildly reduced kidney function, and other findings (as for stage 1) point to kidney disease. 9:17:41 Maximum allowable contrast dose (3.7 X eGFR X 0.75)200 ml. 9:17:45 Sedation plan: IV Moderate Sedation Medication:Versed, Fentanyl 9:33:21 Use device set Femoral Dx 9:33:22 ACIST Syringe (10632) opened to sterile field. 9:33:23 Bag Decanter (2002S) opened to sterile field. 9:33:24 Medline Cath Pack ([id number]) opened to sterile field. 9:33:25 ACIST Hand Control (64036) opened to sterile field. 9:33:26 ACIST Manifold (37198) opened to sterile field. 9:33:26 DIAGNOSTIC Multipack 5Fr catheter set ([id number]) opened to sterile field. 9:33:27 Tegaderm 4 x 4 (1626W) opened to sterile field. 9:33:28 SHEATH 5FR [place] (BWO187) opened to sterile field. 9:33:29 EMERALD Guide Wire (653-253) opened to sterile field. 9:40:18 Zero performed for pressure channel P1 9:40:55 Physician arrived 9:40:56 --------ALL STOP TIME OUT------ 9:40:56 Final Timeout: patient, procedure, and site verified with staff and physician. All members of the team are in agreement. 9:40:58 Right groin site verified by team. 9:41:01 Fire Safety Assessment: A--An alcohol-based skin anteseptic being used preoperatively., C--Open oxygen or nitrous oxide is being used., D--An ESU, laser, or fiber-optic light is being used. 9:41:04 Physical assessment completed. ASA score P 2 - A patient with mild systemic disease as per Quintin Bagley MD. 9:45:13 Risk of Mortality: 0.3 9:45:16 Risk of blood transfusion: 0.1 9:45:19 Risk of CASSANDRA: 2.6 9:48:56 Procedure started. 9:48:57 Fentanyl 50 mcg I.V. was administered by Christine Leonardo RN; for sedation; Verbal order read back and verified. 9:48:59 Local anesthetic to right femoral artery with Lidocaine 2% by Quintin Bagley MD.INITIAL ACCESS ONLY 9:49:02 Versed 1 mg I.V. was administered by Christine Leonardo RN; for sedation; Verbal order read back and verified. 9:50:03 A 5 Fr sheath was inserted into the Right Femoral artery 9:50:12 A MULTIPACK JL 4.0 5Fr catheter was advanced over the wire and used for Left Coronary Angiography. 9:50:51 LCA angiography performed. 9:50:54 Injector settings: Ml/sec: 3, Volume: 6, 9:52:04 Catheter removed. 9:52:09 A MULTIPACK 3DRC 5Fr catheter was advanced over the wire and used for Right Coronary Angiography. 9:52:15 RCA angiography performed. 9:52:19 Injector settings: Ml/sec: 3, Volume: 6, 9:52:44 Fentanyl 50 mcg I.V. was administered by Christine Leonardo RN; for sedation; Verbal order read back and verified. 9:52:47 Versed 1 mg I.V. was administered by Christine Leonardo RN; for sedation; Verbal order read back and verified. 9:53:25 SVG to Diag angiography performed. 9:54:12 SVG to Circ angiography performed. 9:54:34 MUHAMMAD to LAD angiography performed. 9:54:49 Injector settings: Ml/sec: 3, Volume: 6, 9:54:50 Catheter removed. 9:54:55 A MULTIPACK Pigtail 5 Fr catheter was advanced over the wire and used for LV Angiography. 9:56:46 LV hemodynamics recorded. 9:56:48 LV gram done using CAMERON 9:56:52 Injector settings: Ml/sec: 5, Volume: 15, 9:57:05 EF : 55 % 9:57:06 EXOSEAL 5Fr (EX500) opened to sterile field. 9:57:15 Sheath removed intact; hemostasis achieved with Exoseal to the Right Femoral artery. 9:57:44 Fluoroscopy time 01.90 minutes. 9:57:47 Flurop Dose total: 810 9:57:47 Fluoroscopy dose: 810 mGy 9:57:52 Dose Area Product 40718 mGy/cm. 9:58:00 Procedure ended.(Physican Out) 9:58:01 Contrast amount:Isovue 300 87ml. 9:59:15 Maximum allowable dose exceeded? No. 9:59:16 Sharps counted by scrub and verified by R.N. 9:59:18 Insertion/operative site no bleeding no hematoma. 9:59:21 Post-op/insertion site Right Femoral artery dressed using a 4 x 4 and Tegaderm. 9:59:22 Post Procedure Pulses reassessed and unchanged 9:59:25 Post procedure rhythm: unchanged. 9:59:27 Estimated blood loss: 5 ml 9:59:28 Post procedure instruction explained to patient.Patient verbalizes understanding. 9:59:29 Patient needs reinforcement of post procedure teaching. 9:59:59 Procedure type changed to Cath procedure, Diagnostic procedure, C, [facility] w/Coronaries w/Grafts, Sedation Charges, Moderate Sedation 10-24 minutes 10:02:06 Procedure and supply charges have been captured, reviewed, submitted and are correct. 10:02:11 Procedure Complication : No complications 10:02:13 Vital chart was stopped 10:02:16 [facility] Findings: MVD- MD will discuss options w/ pt 10:02:18 Operative report dictated upon procedure completion. 10:02:18 See physician's report for complete and final results. 10:02:20 Report given to [facility]. 10:02:23 Patient transfered to Med II with Stretcher. 10:02:25 Procedure ended. 10:02:25 Full Disclosure recording stopped 10:02:31 End room use (Document Last) 10:02:59 End room use (Document Last) 10:03:32 End room use (Document Last) Device Usage Item Name Manufacture Quantity Catalog Hospital Part Current Minimal L ot# / Number Charge Number Stock Stock Serial# Code ACIST Acist 1 12149 274260 367238 039861 20 Syringe Medical (35286) Systems Inc Bag Microtek 1 363377 73185 299263 5 Decanter Medical Inc. () Medline Medline 1 [id number] 195209 13839 359967 5 Cath Pack ([id number]) ACIST Hand Acist 1 77396 367905 498913 777189 5 Control Medical (36070) Systems Inc ACIST Acist 1 03379 923770 098998 264889 5 Manifold Medical (29945) Systems Inc DIAGNOSTIC Cardinal 1 [id number] 434017 16783 826151 30 Multipack Health 5Fr catheter set (JZ1906) Tegaderm 4 3M 1 1626W [id number] 706462 020216 5 x 4 (1626W) SHEATH 5FR Terumo 1 [id number] 379398 243776 289718 5 [place] (BOQ272) EMERALD Cardinal 1 502455 796211 013077 126007 5 Guide Wire Health (502455) MULTIPACK Cardinal 1 080710 5 JL 4.0 5Fr Health catheter MULTIPACK Cardinal 1 603991 5 3DRC 5Fr Health catheter MULTIPACK Cardinal 1 134831 5 Pigtail 5 Health Fr catheter EXOSEAL 5Fr Cardinal 1 EX500 544662 375200 438076 10 (EX500) Health Signature Audit [place] Stage Time Signature Unsigned Intra-Procedure 11/18/2020 Rylee Mari 10:02:59 AM RT(R) Intra-Procedure 11/18/2020 Christine Leonardo, 10:03:32 AM RN Intra-Procedure 11/18/2020 Quintin Paniagua 10:03:50 AM Sanya CISNEROS Signatures Performing Physician : Signature : Quintin Bagley MD Date : Time : Monitor : Isaura Pandya Signature : RT Date : Time : Nurse : Christine Leonardo, Signature : RN Date : Time : [place] [address] [place] [address]
[~2020-11-17 22:21] MED LIST changes: +HCTZ25 MG PO; +LISINOPRIL10 MG PO
[2020-11-17 22:39] VITALS: BP 112/79
[2020-11-17 23:39] VITALS: BP 129/86
[2020-11-18] VITALS (13 sets, daily range): BP systolic 95–149; BP diastolic 45–89; Ht 182.9 cm; Wt 83.9 kg
[2020-11-18 00:26] LABS: BASOPHILS 0.5 % (0-2); EOSINOPHILS 2.5 % (0-7); HEMATOCRIT 50.4 % (42.0-54.0); HEMOGLOBIN 17.8 g/dL (13.5-17.5); IMMATURE GRANULOCYTES 0.2 % (0-5); LYMPHOCYTE ABS# 2.47 10x3/uL (1.32-3.57); LYMPHOCYTES 27.9 % (15-50); MCH 31.3 pg (26.0-34.0); MCHC 35.3 g/dL (31.0-37.0); MCV 88.6 fL (80.0-100.0); MEAN PLATELET VOLUME 10.3 fL (7.4-10.4); NEUTROPHIL ABS# 5.21 10x3/uL (1.78-5.38); NEUTROPHILS 58.9 % (40-80); PLATELET COUNT 229 10x3/uL (130-400); RBC 5.69 10x6/uL (4.20-6.10); RDW 13.4 % (11.5-14.5); WBC 8.8 10x3/uL (4.8-10.8)
[2020-11-18 00:30] LABS: INR 1.06 (0.85-1.17); PROTIME 12.8 SECONDS (11.6-15.0)
[2020-11-18 00:31] LABS: APTT 28.3 SECONDS (22.8-39.4)
[2020-11-18 00:38] LABS: CALC OSMOLALITY 273 mosm/kg (275-300); CALCIUM 8.9 mg/dL (8.5-10.1); CARBON DIOXIDE 28.6 mmol/L (21.0-32.0); CHLORIDE - SERUM 101 mmol/L (98-107); CREATININE - SERUM 1.1 mg/dL (0.6-1.3); GLUCOSE 93 mg/dL (74-106); POTASSIUM - SERUM 3.5 mmol/L (3.5-5.1); SODIUM 137 mmol/L (136-145); UREA NITROGEN 12 mg/dL (7-18); eGFR NON AFRICAN AMERICAN 72 mL/min (90-120)
[2020-11-18 00:47] LABS: ALBUMIN 3.8 g/dL (3.4-5.0); ALKALINE PHOSPHATASE 50 U/L (30-120); ALT (SGPT) 61 U/L (10-68); BILIRUBIN - TOTAL 1.37 mg/dL (0.2-1.3); CKMB 0.5 U/L (0.0-3.6); CREATINE KINASE 105 UL (21-232); MAGNESIUM - SERUM 2.4 mg/dL (1.8-2.4); PROTEIN - SERUM 7.6 g/dL (6.4-8.2)
--- NOTE | 2020-11-18 02:47 | NUR ---
PT TO ROOM 2104 VIA WHEELCHAIR ACCOMPANIED BY HOSPITAL STAFF.
--- NOTE | 2020-11-18 09:00 | NUR ---
PATIENT BEING TAKEN FOR HEART CATH
--- NOTE | 2020-11-18 10:08 | NUR ---
NURSE RECEIVES REPORT ON PATIENT FROM HEART CATH
--- NOTE | 2020-11-18 11:32 | CN ---
PATIENT NAME:BESSY KOTHARI MEDICAL RECORD: [id number] : 60 LOCATION:D. D.2136 ADMIT DATE: 11/18/20 ACCOUNT: [id number] CONSULTING PHYSICIAN: JOSE IRBY MD REFERRING PHYSICIAN: HARSH CORTEZ MD DATE OF CONSULTATION: 11/18/2020 HISTORY OF PRESENT ILLNESS: A 60-year-old gentleman with a known history of coronary artery disease, status post intervention, presented to the Emergency Room with his typical angina. He has had an ER visit since most recent intervention with chest tightness and pressure with exertion similar to his recent angina. Multiple risk factors, does continue to smoke unfortunately. Unable to attend cardiac rehabilitation. We are asked to see him concerning his cardiovascular status. PAST MEDICAL HISTORY: Includes: 1. History of hypertension. 2. Hyperlipidemia. 3. Coronary artery disease described above. 4. Obstructive pulmonary disease. 5. Osteoarthritis. ALLERGIES: NONSTEROIDALS. MEDICATIONS: Include DuoNeb 3 mL q.6 hours p.r.n., Plavix 75 daily, lisinopril 10 daily, atorvastatin 80 daily, hydrochlorothiazide 25 daily, Singulair 10 daily. SOCIAL HISTORY: Smokes about a pack a day, nondrinker, easily takes care all his ADLs, no set exercise program. REVIEW OF SYSTEMS: The patient reports easy bruising but reports no swollen glands. The patient reports no fever, no night sweats, no significant weight gain, no significant weight loss. No significant exercise tolerance. The patient reports no dry eyes, no irritation, no vision change. Patient reports no difficulty hearing and no ear pain. Patient reports no frequent nose bleeds or nose and sinus problems. Patient reports on arm pain on exertion. No shortness of breath while lying down. No history of heart murmur. Patient reports no cough, no wheezing or coughing up blood. Patient reports no abdominal pain, no vomiting. Normal appetite. No diarrhea and not vomiting blood. No nausea and no constipation. Patient reports no incontinence. No difficulty urinating. No hematuria. No increased frequency. Patient reports no muscle aches. No weakness, no arthralgias, no back pain. No swelling of the extremities. Patient reports no abnormal mole, no jaundice, no rashes. Reports no loss of consciousness. No weakness and no numbness. No seizures, dizziness, or headaches. The patient reports no depression, no sleep disturbance, feeling safe in a relationship and no alcohol abuse. Patient reports on fatigue. Reports no runny nose or sinus pressure. No itching, no hives, and no frequent sneezing. PHYSICAL EXAMINATION: GENERAL: Well-developed, well-nourished, appears stated age. VITAL SIGNS: 149/89, pulse 62 and regular. HEENT: Normocephalic, atraumatic. NECK: No JVD or bruit. CONSULT REPORT [id number] BESSY KOTHARI HEART: Regular. A II/ systolic ejection murmur. LUNGS: Good air excursion. ABDOMEN: Soft and nontender. Pulses 2+ with no edema. DIAGNOSTIC STUDIES: EKG shows nonspecific ST-T changes. IMPRESSION: Acute coronary syndrome with known history of coronary artery disease, continued smoking. Plan for diagnostic angiography, intervention based on the above. TRANSINT:[id number] Voice Confirmation ID: [id number] DOCUMENT ID: [id number] JOSE IRBY MD at 1132 CC: [id number] DICTATION DATE: 11/18/20 0851 LENO SEWER: 11/18/20 1059 ADM IN [facility] [address] [id number]
[2020-11-18 11:37] LABS: BASOPHILS 0.3 % (0-2); EOSINOPHILS 2.8 % (0-7); HEMATOCRIT 49.4 % (42.0-54.0); IMMATURE GRANULOCYTES 0.1 % (0-5); LYMPHOCYTE ABS# 2.23 10x3/uL (1.32-3.57); LYMPHOCYTES 31.7 % (15-50); MCH 30.7 pg (26.0-34.0); MCHC 34.4 g/dL (31.0-37.0); MCV 89.2 fL (80.0-100.0); MEAN PLATELET VOLUME 10.5 fL (7.4-10.4); MONOCYTES 8.4 % (2-11); NEUTROPHIL ABS# 3.98 10x3/uL (1.78-5.38); NEUTROPHILS 56.7 % (40-80); PLATELET COUNT 190 10x3/uL (130-400); RBC 5.54 10x6/uL (4.20-6.10); RDW 13.3 % (11.5-14.5)
[2020-11-18 12:01] LABS: CALCIUM 8.4 mg/dL (8.5-10.1); CHOL - HDL RATIO 6.2 ratio (2.3-4.9); CREATININE - SERUM 1.1 mg/dL (0.6-1.3); LDL-HDL RATIO 4.1 ratio (1.5-3.5); POTASSIUM - SERUM 3.9 mmol/L (3.5-5.1)
[2020-11-18 12:05] LABS: ANION GAP 13.7 mmol/L (8-16); CARBON DIOXIDE 26.2 mmol/L (21.0-32.0)
[2020-11-19] VITALS: BP 120/64; BP 137/69
--- NOTE | 2020-11-19 14:10 | OP ---
PATIENT NAME: BESSY KOTHARI MEDICAL RECORD: [id number] :60 LOCATION:D.M2 D.2136 ADMISSION DATE:11/18/20 SURGEON: JOSE IRBY MD DATE OF OPERATION: 11/18/2020 PROCEDURE: Left heart catheterization, selective coronary angiography, right femoral artery approach. CATHETERS: A 5-Turkish sheath, 5/4 left and right Emanuel, 5/4 pig. The procedure was well tolerated. The patient returned to garcia. Sheath was removed. ExoSeal device was placed. FINDINGS: Left ventriculography in 30-degree CAMERON view shows inferior basilar hypokinesis. Overall, LV function, however, it is preserved at 50% or better. CORONARY ANATOMY: Left main: Left main is free of disease. LAD: Fills for a short period of time and is totally occluded. Circumflex. The previously placed circumflex stent is widely patent throughout the course without evidence of post-anastomotic stenosis. Right coronary artery: Rudimentary. BYPASS GRAFTS: MUHAMMAD to LAD is widely patent throughout its course without evidence post-anastomotic stenosis. Saphenous vein graft to the diagonal, widely patent with no evidence post-anastomotic stenosis. Saphenous vein graft to the OM, again widely patent throughout its course. No post-anastomotic stenosis. IMPRESSION: Patent stent to the circumflex, patent 3/3 bypass grafts. Left ventricular function remains normal. TRANSINT:[id number] Voice Confirmation ID: [id number] DOCUMENT ID: [id number] JOSE IRBY MD at 1410 CC: [id number] DICTATION DATE: 11/18/20 1009 BIOMETRICS INSTRUCTOR: 11/18/20 1335 ADM IN [facility] [address] [id number]
--- NOTE | 2020-11-19 17:32 | NUR ---
ALERT AND ORIENTED X4. STANDING IN ROOM. NOTIFY DAUGHTER OF DISCHARGE ORDER. DC RT AC IV TIP INTACT. DISCHARGE INSTRUCTIONS GIVEN VERBALLY AND WRITTEN. DISCHARGE PAPERS SIGNED ON CHART. ESCORT TO RIDE VIA WHEELCHAIR. REMAINS FREE FROM INJURY.
== END 2020-11-19 17:35 | disposition home or self-care (01) | DRG 191 ==
LOC: D.ER 22:21 → OBSVTIME 11-18 00:30 → D.M2 11-18 00:30
PROVIDERS: Family Medicine; Internal Medicine Interventional Cardiology; ADMIT Emergency Medicine; ATTEND Emergency Medicine
PROC: B2111ZZ Fluoroscopy of Multiple Coronary Arteries using Low Osmolar Contrast (ICD-10-PCS; 2020-11-18)
PROC: B2151ZZ Fluoroscopy of Left Heart using Low Osmolar Contrast (ICD-10-PCS; 2020-11-18)
PROC: 4A023N7 Measurement of Cardiac Sampling and Pressure, Left Heart, Percutaneous Approach (ICD-10-PCS; 2020-11-18)
PROC: B2131ZZ Fluoroscopy of Multiple Coronary Artery Bypass Grafts using Low Osmolar Contrast (ICD-10-PCS; principal; 2020-11-18 08:00)
DX: I24.9 Acute ischemic heart disease, unspecified (principal); I25.10 Atherosclerotic heart disease of native coronary artery without angina pectoris; I10 Essential (primary) hypertension; J44.9 Chronic obstructive pulmonary disease, unspecified; K21.9 Gastro-esophageal reflux disease without esophagitis; F41.8 Other specified anxiety disorders; F32.9 Major depressive disorder, single episode, unspecified; Z72.0 Tobacco use